=== PATIENT | female | born 1960 ===

== ENCOUNTER 2024-05-15 08:49 | Emergency (ER) | payer MEDICARE, SELFPAY ==
--- NOTE | ~2024-05-15 | XR_ITS ---
EXAMINATION: XR CHEST CLINICAL INFORMATION: productive cough COMPARISON: None available. TECHNIQUE: PA and lateral views of the chest were obtained. FINDINGS: The lungs are adequately expanded. Mild asymmetric elevation right hemidiaphragm. No focal consolidation, pleural effusion, pulmonary edema or pneumothorax. The cardiomediastinal silhouette is within normal limits for technique. No acute osseous abnormality. XR/XR chest 2V IMPRESSION: No acute pulmonary disease. Electronically signed by: Suellen Gagnon DO 05/15/2024 01:18 PM ZORAN
[2024-05-15 08:59] VITALS: BP 142/63; PULSE 93; RESP 24; TEMP 37; O2SAT 95; BMI 28.0
--- NOTE | 2024-05-15 09:24 | ED_ITS ---
HPI - General Adult General Chief complaint: Dyspnea Stated complaint: asthma Time Seen by Provider: 05/15/24 09:16 Source: patient and complaint inspector Mode of arrival: ambulatory Limitations: language barrier History of Present Illness ED Provider: Kassandra CARUSO narrative: Patient is a 64-year-old female with history of asthma presenting to the emergency department with complaint of cough and shortness of breath since Wednesday. Complains of generalized body aches, subjective fevers, wheezing. Reports cough is productive of dark yellow/green sputum. Denies any known sick contacts or other sick family members at home. Has been using her inhaler and breathing treatments at home with little relief but also ran out of albuterol for her nebulizer. Reports small amount of diarrhea yesterday but none today, has been able to tolerate PO food and fluids today. Denies nausea, vomiting, or abdominal pain. MD complaint: cough, shortness of breath Onset (ago): day(s) Treatments prior to arrival: other Related Data Previous Rx's ?Medication ?Instructions ?Recorded albuterol sulfate 2.5 mg/0.5 mL 5 mg inhalation QID PRN shortness 05/15/24 solution for nebulization of breath or wheezing #30 ea azithromycin 250 mg tablet See Rx Instructions PO .COMPLEX #6 05/15/24 tabs prednisone 20 mg tablet 40 mg (2 x 20 mg) PO DAILY #10 tabs 05/15/24 Allergies Allergy/AdvReac Type Severity Reaction Status Date / Time Penicillins Allergy Unknown Verified 05/15/24 09:03 Review of Systems 2 Review of Systems: As per HPI. Yes all other systems are reviewed and are negative Constitutional: Constitutional: Reports as per HPI [facility] Social History Social History Advance Directives: No Advance Directives Information Provided: Yes Do you have a plan to hurt others: No Plan Physical Exam ED Vital Signs: Vital Signs - 24 hr 05/15/24 08:59 05/15/24 10:23 Temperature 98.6 F Pulse Rate 93 76 Respiratory Rate 24 H 22 H Blood Pressure 142/63 H Pulse Oximetry 95 Oxygen Delivery Method Room Air BMI result Body Mass Index 28.0 Vital signs have been reviewed and appear to be correct. Blood pressure normal. Heart rate normal. Respiratory rate slightly tachypneic. Temperature normal. Oxygen saturation normal. Const General: cooperative, healthy appearing and no acute distress Orientation/consciousness: oriented to person, oriented to place, oriented to time and patient oriented x3 Limitations: no limitations HENMT Head: Yes normocephalic and Yes atraumatic Ears: external ears normal General nose exam: Normal external nose present Face and sinus: Yes face symmetric Mouth: oropharynx normal and moist mucous membranes Throat: Yes uvula midline Eyes Pupils: Equal, round and reactive pupils present Neck Neck: Yes normal visual inspection and Yes supple Resp Effort & Inspection: normal respiratory effort and not able to speak in complete sentences Auscultation: wheezes expiratory wheezes, inspiratory wheezes and throughout Cardio Rate: regular rate Rhythm: regular rhythm Heart sounds: S1 normal heart sound present and S2 normal heart sound present GI Palpation (GI): Soft to palpation and nontender Auscultation: normoactive bowel sounds General: Yes no CVA tenderness Back/Spine/Pelvis Back: no CVA tenderness Skin General skin exam: elasticity normal and turgor normal Neuro General: oriented to person, oriented to place, oriented to time, patient oriented x3, moves all extremities, no focal motor deficits and CN's II-XI intact bilaterally Cranial nerves: Yes Equal, round and reactive pupils present Cognition (Neuro): normal cognition Extrem General: Yes full ROM, Yes no pedal edema and Yes no calf tenderness Psych Mental Status: mental status grossly normal Affect: normal affect Thought process: Normal thought process present Medications Administered Discontinued Medications Generic Name Dose Route Start Last Admin Trade Name Freq PRN Reason Stop Dose Admin Albuterol Sulfate 5 mg/ 0 mg 05/15/24 10:18 05/15/24 10:22 Albuterol/Ipratropium 3 ml INHALE 05/15/24 10:19 1 each ONCE ONE Administration Magnesium Sulfate 2 gm in 50 mls @ 25 mls/hr 05/15/24 10:09 05/15/24 11:16 Magnesium Sulfate/H2o IV 05/15/24 12:08 Infused ONCE ONE Infusion Methylprednisolone Sodium Succinate 60 mg 05/15/24 10:09 05/15/24 11:22 Methylprednisolone Sod Succ 125 Mg/2 Ml Vial IVPUSH 05/15/24 10:10 60 mg ONCE ONE Administration Potassium Chloride 40 meq 05/15/24 10:25 05/15/24 11:07 Potassium Chloride Packet 20 Meq Packet PO 05/15/24 10:26 40 meq ONCE ONE Administration Medical Decision Making Medical Decision Making MDM Narrative: Patient is a 64-year-old female with history of asthma presenting to the emergency department with complaint of cough and shortness of breath since Wednesday. On exam patient is awake, A+Ox3, slightly tachypneic, VS otherwise WNL, afebrile, normal neurological exam without focal deficits, physical exam findings as above. Only able to speak 2-3 words at a time. Given reported symptoms and physical exam findings, initial differential includes asthma exacerbation, viral illness, bronchitis, pneumonia. Labs notable for mild hypokalemia. Viral serology negative. X-ray chest notable for no evidence of pneumonia. My interpretation is in agreement with the radiologist's interpretation. Upon reassessment, wheezing significantly decreased and patient reports improvement in symptoms after breathing treatment and IV medications. Will treat patient for bronchitis with azithromycin, prednisone, albuterol. Follow up with PCP. Return precautions discussed. Patient verbalized understanding of and agreement with plan. In-person product delivery specialist was utilized for all interactions, assessments, and discussions. Differential Diagnosis Differential Diagnoses: The differential diagnosis associated with the presentation includes as per [facility] Admission/Observation Consideration of admission/observation: Escalation of care including admission/observation considered Patient would have been admitted to the hospital had their work up had any findings where hospital admission was appropriate and their clinical presentation warranted hospital admission. Lab Data [facility] Lab Attestation statement: I reviewed the patient's lab results. as per [facility] 05/15/24 09:45 05/15/24 09:45 Labs: Lab Results 05/15/24 Range/Units 09:45 WBC 4.6 L (4.8-10.8) X10*3/uL RBC 4.24 (4.20-5.50) X10*6/uL Hgb 11.8 L (12.0-16.0) g/dl Hct 36.8 L (37.0-47.0) % MCV 86.8 (80.0-98.0) fL MCH 27.8 (27.0-33.0) pg MCHC 32.1 (31.0-35.0) g/dl RDW 13.2 (11.0-16.0) % Plt Count 248 (160-400) X10*3/uL MPV 10.4 (9.4-12.3) fL Immature Gran % (Auto) 0.2 (0.0-0.4) % Neut % (Auto) 63.6 (45-73) % Lymph % (Auto) 26.7 (20-40) % Roosevelt % (Auto) 5.8 (2-11) % Eos % (Auto) 2.8 (0-4) % Baso % (Auto) 0.9 (0-2) % Lymph # (Auto) 1.2 (1.2-4.9) X10*3/uL Roosevelt # (Auto) 0.3 (0.1-1.2) X10*3/uL Eos # (Auto) 0.1 (0.0-0.4) X10*3/uL Baso # (Auto) 0.0 (0.0-0.2) X10*3/uL Abs Immat Gran (auto) 0.01 (0.00-0.03) X10*3/uL Absolute Neuts (auto) 3.0 (2.0-8.3) x10*3/uL Absolute Nucleated RBC 0.000 (0.0-0.012) X10*3/uL Nucleated RBC % (auto) 0.0 (0.0-0.2) /100WBC Sodium 138 (135-145) mmol/L Potassium 3.2 L (3.3-5.1) mmol/L Chloride 102 (96-108) mmol/L Carbon Dioxide 27 (22-29) mmol/L Anion Gap 12 (12-20) BUN 14 (9-16) mg/dL Creatinine 0.88 (0.5-1.4) mg/dL Estim Creat Clear Calc 64.2 Estimated GFR > 60 Random Glucose 115 (60-115) mg/dL Calcium 8.8 (8.4-10.2) mg/dL Magnesium 1.8 (1.6-2.6) mg/dL Total Bilirubin 0.3 (0.0-1.0) mg/dL AST 29 (5-31) U/L ALT 29 (0-31) U/L Alkaline Phosphatase 73 (39-117) U/L Total Protein 7.1 (6.5-8.0) g/dL Albumin 4.1 (3.5-5.0) g/dL Influenza Type A (PCR) NEGATIVE (Negative) Influenza Type B (PCR) NEGATIVE (Negative) RSV RNA Qual (PCR) NEGATIVE (Negative) SARS-CoV-2 RNA (RT-PCR) NEGATIVE (Negative) Independent Interpretation I performed an independent interpretation of an: Plain X-Ray Interpretation: No evidence of pneumonia on chest xray Radiology Impression Discussion of test interpretation with radiology: I have reviewed the radiologist's reading. Radiologist Impression: XR/XR chest 2V IMPRESSION: No acute pulmonary disease. External Record Review External record reviewed: Inpatient record, Office record and Outpatient record Prescription Management I considered prescription management with: Antibiotic and Other Critical Care Time Critical Care Time Critical Care Time: Yes Total Critical Care Time: 35 Attestation: I have personally provided critical care time exclusive of time spent on separately billable procedures. Time includes review of lab data, radiology results, discussion with consultants, and monitoring for potential decompensation. Intervention performed as documented. Discharge Plan Discharge Clinical Impression: Asthma with exacerbation, Bronchitis Patient Disposition: Home, Self-Care Instructions: Asthma (DC), Acute Bronchitis (ED) Additional Instructions: You were evaluated in the emergency department today for cough and shortness of breath. Your chest x-ray did not show evidence of pneumonia. Your flu, COVID, and RSV swabs were negative. You are being treated with an antibiotic for bronchitis, complete the full course as prescribed. You are also being prescribed a course of steroids to decrease inflammation. You are being prescribed additional albuterol for your nebulizer machine. Follow-up with your primary care provider. Return to the emergency department with worsening shortness of breath, fevers, chest pain or any other new or concerning symptoms. Prescriptions: New azithromycin 250 mg tablet See Rx Instructions .ROUTE .COMPLEX Qty: 6 0RF Rx Instructions: For 250 mg dose pack: take 500 mg today (day 1), then 250 mg for 4 days (days 2-5) prednisone 20 mg tablet 40 mg PO DAILY Qty: 10 0RF albuterol sulfate 2.5 mg/0.5 mL solution for nebulization 5 mg inhalation QID PRN (Reason: shortness of breath or wheezing) Qty: 30 0RF Print Language: Cameroonian
[2024-05-15 09:49] LABS: MANUAL DIFF FLAG NO
[2024-05-15 09:51] LABS: Basophils Percent Auto 0.9 % (0-2); Eosinophils Absolute Auto 0.1 X10*3/uL (0.0-0.4); Eosinophils Percent Auto 2.8 % (0-4); Hematocrit 36.8 % (37.0-47.0); Hemoglobin 11.8 g/dl (12.0-16.0); Imm Gran Abs Auto 0.01 X10*3/uL (0.00-0.03); Imm Gran Pct Auto 0.2 % (0.0-0.4); Lymphocytes Absolute Auto 1.2 X10*3/uL (1.2-4.9); Lymphocytes Percent Auto 26.7 % (20-40); Mean Corpuscular HGB Conc 32.1 g/dl (31.0-35.0); Mean Corpuscular Hemoglobin 27.8 pg (27.0-33.0); Mean Corpuscular Volume 86.8 fL (80.0-98.0); Mean Platelet Volume 10.4 fL (9.4-12.3); Monocytes Absolute Auto 0.3 X10*3/uL (0.1-1.2); Monocytes Percent Auto 5.8 % (2-11); Neutrophils Percent Auto 63.6 % (45-73); Platelet Count 248 X10*3/uL (160-400); Red Blood Count 4.24 X10*6/uL (4.20-5.50); Red Cell Distribution Width 13.2 % (11.0-16.0); White Blood Count 4.6 X10*3/uL (4.8-10.8)
[2024-05-15 10:04] LABS: Alanine Aminotransferase 29 U/L (0-31); Albumin Level 4.1 g/dL (3.5-5.0); Alkaline Phosphatase 73 U/L (39-117); Anion Gap 12 (12-20); Aspartate Amino Transferase 29 U/L (5-31); Bilirubin Total 0.3 mg/dL (0.0-1.0); Blood Urea Nitrogen 14 mg/dL (9-16); Calcium 8.8 mg/dL (8.4-10.2); Carbon Dioxide 27 mmol/L (22-29); Chloride 102 mmol/L (96-108); Creatinine Clr Calc Pharmacy 64.2; Estimated Glomerular Filt Rate > 60; Glucose Random 115 mg/dL (60-115); Magnesium 1.8 mg/dL (1.6-2.6); Potassium 3.2 mmol/L (3.3-5.1); Sodium 138 mmol/L (135-145); Total Protein 7.1 g/dL (6.5-8.0)
[2024-05-15] MEDS: Albuterol Sulfate 5 MG, Albuterol/Iprat 2.5/0.5MG 3 ML 3 ML INHALE (10:22)
[2024-05-15 10:23] VITALS: PULSE 76; RESP 22; O2SAT 95
[2024-05-15 10:27] LABS: Influenza A PCR NEGATIVE (Negative); Influenza B PCR NEGATIVE (Negative); Resp Syncy Virus RNA Qual PCR NEGATIVE (Negative); SARS COV2 PCR INHOUSE NEGATIVE (Negative)
[2024-05-15] MEDS: Magnesium Sulfate/H2O 2 GM/50 ML PIGGYBACK IV (10:58)
[2024-05-15] MEDS: Potassium Chloride Packet 20 MEQ PACKET 40 MEQ PO (11:07)
[2024-05-15] MEDS: methylPREDNISolone Sod Succ 125 MG/2 ML VIAL 60 MG IVPUSH (11:22)
[2024-05-15 14:10] VITALS: BP 126/65; PULSE 85; RESP 18; TEMP 36.9; O2SAT 95
== END 2024-05-15 14:14 | disposition home or self-care (01) ==
PROVIDERS: Emergency Provider Emergency Medicine
DX: J40 Bronchitis, not specified as acute or chronic (principal); R06.00 Dyspnea, unspecified; R05.9 Cough, unspecified; M79.10 Myalgia, unspecified site; Z03.818 Encounter for observation for suspected exposure to other biological agents ruled out; Z79.899 Other long term (current) drug therapy
CPT/HCPCS: 0241U; 71046; 80053; 83735; 85025; 94640; 96365; 96375; 99284; J2919; J3475

== ENCOUNTER 2024-06-16 08:49 | Outpatient (REF) | payer MEDICARE, SELFPAY ==
[2024-06-16 14:07] LABS: Appearance Urine Clear; Color Urine Yellow; Glucose Urine UA Negative (Negative); Leukocyte Esterase Urine Small (1+) (Negative); Nitrite Urine Negative (Negative); PH 6.5 (5.0-9.0); Specific Gravity - Urine 1.015 (1.005-1.025); UMIC TRIGGER UACC YES; Urine Blood Negative (Negative); Urine Ketones Negative (Negative); Urine Protein Negative (Neg-Trace)
[2024-06-16 14:18] LABS: MANUAL DIFF FLAG NO
[2024-06-16 14:21] LABS: Bacteria Urine None Seen (None Seen); Hyaline Casts Urine 0-2 /LPF (0-2); RBC Urine 0-2 /HPF (0-2); Squamous Epithelial Cell Urine 0-2 /HPF (0-2); UACC Culture Trigger YES; WBC Urine 0-5 /HPF (0-5)
[2024-06-16 14:22] LABS: Basophils Absolute Auto 0.1 X10*3/uL (0.0-0.2); Basophils Percent Auto 1.3 % (0-2); Eosinophils Absolute Auto 0.1 X10*3/uL (0.0-0.4); Eosinophils Percent Auto 2.3 % (0-4); Hematocrit 37.7 % (37.0-47.0); Hemoglobin 11.8 g/dl (12.0-16.0); Imm Gran Abs Auto 0.01 X10*3/uL (0.00-0.03); Imm Gran Pct Auto 0.2 % (0.0-0.4); Lymphocytes Absolute Auto 2.1 X10*3/uL (1.2-4.9); Lymphocytes Percent Auto 33.9 % (20-40); Mean Corpuscular HGB Conc 31.3 g/dl (31.0-35.0); Mean Corpuscular Hemoglobin 27.7 pg (27.0-33.0); Mean Corpuscular Volume 88.5 fL (80.0-98.0); Mean Platelet Volume 11.3 fL (9.4-12.3); Monocytes Absolute Auto 0.4 X10*3/uL (0.1-1.2); Monocytes Percent Auto 5.7 % (2-11); Neutrophils Absolute Auto 3.5 x10*3/uL (2.0-8.3); Neutrophils Percent Auto 56.6 % (45-73); Platelet Count 343 X10*3/uL (160-400); Red Blood Count 4.26 X10*6/uL (4.20-5.50); Red Cell Distribution Width 13.5 % (11.0-16.0); White Blood Count 6.1 X10*3/uL (4.8-10.8)
[2024-06-16 14:33] LABS: Estimated Average Glucose 120 mg/dL; Hemoglobin A1C 119.7845 umol/L; Hemoglobin A1c % 5.8 % (<6.0); Total Hemoglobin (HGBA1C) 3043.6359 umol/L
[2024-06-16 14:44] LABS: Anion Gap 12 (12-20); Aspartate Amino Transferase 32 U/L (5-31); Bilirubin Total 0.3 mg/dL (0.0-1.0); Blood Urea Nitrogen 19 mg/dL (9-16); Calcium 9.4 mg/dL (8.4-10.2); Carbon Dioxide 28 mmol/L (22-29); Chloride 105 mmol/L (96-108); Cholesterol 158 mg/dL (<200); Estimated Glomerular Filt Rate > 60; Glucose Random 82 mg/dL (60-115); HDL Cholesterol 42 mg/dL (>40); LDL Cholesterol Calculated 84 mg/dL (<100); Potassium 3.7 mmol/L (3.3-5.1); Sodium 141 mmol/L (135-145); Total Protein 6.8 g/dL (6.5-8.0); Triglycerides 161 mg/dL (<150); Uric Acid 7.9 mg/dL (2.4-5.7)
[2024-06-16 15:00] LABS: Alanine Aminotransferase 30 U/L (0-31); Alkaline Phosphatase 76 U/L (39-117)
[2024-06-16 15:05] LABS: TSH reflex Free T4 2.49 uIU/mL (0.32-4.0)
[2024-06-17 09:00] LABS: HIV AB/AG Nonreactive (Nonreactive); HIV Num 1 0.08 S/CO (0.00-0.99); ~HepC Num1 0.17 S/CO (0.00-0.79); ~Hepatitis C Antibody Nonreactive (Nonreactive)
== END 2024-06-16 08:50 | disposition home or self-care (01) ==
LOC: HO.CHCLDS 08:49
PROVIDERS: Visit Provider Internal Medicine
DX: I10 Essential (primary) hypertension (principal); T56.0X1A Toxic effect of lead and its compounds, accidental (unintentional), initial encounter; M10.1 Lead-induced gout; R30.0 Dysuria; Z13.1 Encounter for screening for diabetes mellitus
CPT/HCPCS: 36415; 80053; 80061; 81001; 83036; 84443; 84550; 85025; 86803; 87086; 87389

== ENCOUNTER 2024-07-31 09:00 | Outpatient (REF) | payer MEDICARE, SELFPAY ==
--- OUTSIDE RECORDS SUMMARY | 2024-07-31 13:20 | XMS_ITS | Encounter Summary ---
Author Organization [employer] Address [address] [facility] [address] [place] [address] Care Team Providers Care Dermatologist And Dermatopathologist Name Role Phone Arnulfo Maria MD Primary Care Prov ider Encounter Details Date Type Department Care Team (Latest Contact Info) Description 07/26/2024 Travel Social History Tobacco Use Types Packs/Day Years Used Date Smoking Tobacco: Former Cigarettes 0.3 21 S tarted: 1982 Smokeless Tobacco: Never Alcohol Use Standard Drinks/Week Comments Never 0 (1 standard drink = 0.6 oz pur e alcohol) Depression Answer Date Recorded Patient Health Questionnaire-9 Score 4 06/15/2024 Patient Health Questionnaire-9 Score 4 06/15/2024 Last PHQ-9: Questionnaire Data Not on file 1 08/16/2023 Housing Stability Answer Date Recorded What is your housing situation today? I have manuel sanchez 06/05/[address] you li ve. Do you have problems with any of the following? None of the above 06/05/2024 Food Insecurity Answer Date Recorded Within the past 12 months, y ou worried that your food would run out before you got money to buy more: Never True 06/05/2024 Within the past 12 months,th e food you bought just didn't last and you didn't have enough money to get more: Never True 08/2023 Transportation Answer Date Recorded In the past 12 months, has l ack of transportation kept you from medical appts, meetings, work or from getting things needed for daily living? No 06/05/2024 Utilities Answer Date Recorded In the past 12 months, has t he electric, gas, oil or water company threatened to shut off services in your home? No 06/05/2024 Depression Answer Date Recorded Patient Health Questionnaire-2 Score 2 06/15/2024 Internet Access Answer Date Recorded Internet Access Q1 Yes 06/05/2024 Internet Access Q2 Not on file 06/05/2024 Comments Unknown Sex and Gender Information Value Date Recorded Sex Assigned at Female 05/17/2024 2:32 PM EST Legal Sex Female 10:58 AM EDT Gender Identity Female 05/17/2024 2:32 PM EST Sexual Orientation Straight 05/17/2024 2: 32 PM EST documented as of this encounter Plan of Treatment Not on file documented as of this encounter Visit Diagnoses Not on filedocumented in this encounter Additional Health Concerns Assessment Noted Time PHQ-9 Depression Total Score: 4 06/15/20 24 1:33 PM EST documented as of this encounter Care Teams Dermatologist And Dermatopathologist Relationship Specialty Start Date End Date Arnulfo Maria MD [address] [place] [phone] PCP - General Internal Medicine 06/15/24 documented as of this encounter
--- OUTSIDE RECORDS SUMMARY | 2024-07-31 13:20 | XMS_ITS | Encounter Summary ---
Author Organization [employer] Address [address] [facility] 7t [place] [address] Care Team Providers Care Packing Attendant Name Role Phone Arnulfo Maria MD Primary Care Prov ider Reason for Visit * Reason Onset Date Comments chart prep 07/25/2024 Encounter Details Date Type Department Care Team ([facility] st Contact Info) Description 07/25/2024 Telephone [facility] MED & PEDS [address] [place] [address] Arnulfo Maria MD [address] [place] [address] chart prep Social History Tobacco Use Types Packs/Day Years Used Date Smoking Tobacco: Former Cigarettes 0.3 21 S tarted: 1983 Smokeless Tobacco: Never Alcohol Use Standard Drinks/Week [...] PM EST documented as of this encounter Miscellaneous Notes * Telephone Encounter - Cristina Corona [place] - 07/25/2024 3:33 PM EST Chart Prep Labs: done Images: not done Vaccines due: yes Referrals: pending appt Screenings: colonoscopy Overdue care gaps: Sbirt documented in this encounter Plan of Treatment Not on file documented as of this encounter Visit Diagnoses Not on filedocumented in this encounter Additional Health Concerns Assessment Noted Time PHQ-9 Depression Total Score: 4 06/15/20 24 1:33 PM EST documented as of this encounter Care Teams Packing Attendant Relationship Specialty Start Date End Date Arnulfo Maria MD [address] [place] [phone] PCP - General Internal Medicine 06/15/24 documented as of this encounter
--- OUTSIDE RECORDS SUMMARY | 2024-07-31 13:20 | XMS_ITS | Encounter Summary ---
Author Organization [employer] Address [address] [facility] 7t [place] [address] Care Team Providers Care Electric Meter Tester Shop Name Role Phone Arnulfo Maria MD Primary Care Prov ider Reason for Visit * Reason Onset Date Comments Pre-op Exam 07/26/2024 Encounter Details Date Type Department Care Team ([facility] st Contact Info) Description 07/26/2024 Telephone [facility] MEDICINE [address] [place] [address] Arnulfo Maria MD [address] [place], [place] [phone] Pre-op Exam Social History Tobacco Use Types Packs/Day Years [...] encounter Miscellaneous Notes * Telephone Encounter - Andres Peña - 07/26/2024 4:16 PM EST Date of Surgery: 08/15/2024 Surgical procedure being done: Cataract Type of anesthesia: MAC Lab needed: No EKG: No Surgeon's name: Bryce Aguilar Facility name: [facility] Surgeon's office number: [phone] Ext [phone] Surgeon's office fax number: [phone] Contact name (person you spoke with): Ernestina Last office note from surgeon requested: No Send Message to Kinjal Jose and Eleazar Clay documented in this encounter Plan of Treatment Not on file documented as of this encounter Visit Diagnoses Not on filedocumented in this encounter Additional Health Concerns Assessment Noted Time PHQ-9 Depression Total Score: 4 06/15/20 24 1:33 PM EST documented as of this encounter Care Teams Electric Meter Tester Shop Relationship Specialty Start Date End Date Arnulfo Maria MD [address] [place] [id number] PCP - General Internal Medicine 06/15/24 documented as of this encounter
--- OUTSIDE RECORDS SUMMARY | 2024-07-31 13:20 | XMS_ITS | Encounter Summary ---
Author Organization [employer] Address [address] [facility] [address] [place] [address] Care Team Providers Care Deburring Machine Operator Name Role Phone Arnulfo Maria MD Primary Care Prov ider Reason for Visit * Reason Onset Date Comments new patient visit 05/08/2024 Encounter Details Date Type Department Care Team ([facility] st Contact Info) Description 05/08/2024 Telephone [facility] MEDICINE [address] [place] [address] Arnulfo Maria MD [address] [place], [place] [phone] new patient visit Social History Tobacco Use Types Packs/Day Years Used Date Smoking Tobacco: Never Assessed Comments Unknown Sex and Gender Information Value Date Recorded Sex Assigned at Female 05/17/2024 2:32 PM EST Legal Sex Female 10:58 AM EDT Gender Identity Female 05/17/2024 2:32 PM EST Sexual Orientation Straight 05/17/2024 2: 32 PM EST documented as of this encounter Miscellaneous Notes * Telephone Encounter - Eleazar Clay - 05/08/2024 9:12 AM EST TC placed to patient for scheduling of new patient visit. Agreed to 05/11/[address] Key Medical Conditions: Asthma Pt running out of medication/ has a list that will let provider know about / Apptmnt reminder and release form sent via mail . documented in this encounter Plan of Treatment Not on file documented as of this encounter Visit Diagnoses Not on filedocumented in this encounter Care Teams Deburring Machine Operator Relationship Specialty Start Date End Date Arnulfo Maria MD [address] [place] [id number] PCP - General Internal Medicine 06/15/24 documented as of this encounter
--- OUTSIDE RECORDS SUMMARY | 2024-07-31 13:20 | XMS_ITS | Encounter Summary ---
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 female who presents for No chief complaint on file.. Hypertension This is a chronic problem. The problem is controlled. Pertinent negatives include no chest pain, headaches, palpitations, peripheral edema or shortness of breath. Review of Systems Respiratory: Negative for shortness of breath. Cardiovascular: Negative for chest pain and palpitations. Neurological: Negative for headaches. Objective Physical Exam Neurological: General: No focal deficit present. Mental Status: She is oriented to person, place, and time. Psychiatric: Mood and Affect: Mood normal. Behavior: Behavior normal. Assessment/Plan Problem List Items Addressed This Visit 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 neuro comp ([facility]) - Primary Primary hypertension Uncontrolled, will add amlodipine, continue low sodium diet and exercise as tolerated, follow up in1 month Other Visit Diagnoses Dietary counseling Exercise counseling documented in this encounter Miscellaneous Notes * Assessment & Plan Note - Arnulfo Bates MD - 07/26/2024 11:55 AM ESTAssociated Problem(s): Primary hypertension Uncontrolled, will add amlodipine, continue low sodium diet and exercise as tolerated, follow up in1 month documented in this encounter Plan of Treatment Not on file documented as of this encounter Visit Diagnoses Diagnosis 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 neuro comp ([facility])- Primary Dietary counseling Dietary surveillance and counseling Exercise counseling Primary hypertension Unspecified essential hypertension documented in this encounter Additional Health Concerns Assessment Noted Time PHQ-9 Depression Total Score: 4 06/15/20 24 1:33 PM EST documented as of this encounter Care Teams Roofing Applicator Relationship Specialty Start Date End Date Arnulfo Maria MD [address] [place] [phone] PCP - General Internal Medicine 06/15/24 documented as of this encounter
--- OUTSIDE RECORDS SUMMARY | 2024-07-31 13:20 | XMS_ITS | Encounter Summary ---
Author Organization [email or web address] Address [address] [facility] 7t [place] [address] Care Team Providers Care Feeder/Folder Name Role Phone Arnulfo Maria MD Primary Care Prov ider Reason for Visit * Reason Comments Med Refill Encounter Details Date Type Department Care Team ([facility] Contact Info) Description 07/10/2024 Refill [facility] CHC MED & PEDS [address] [place] [address] Arnulfo Maria MD [address] [place], [place] [phone] Social History Tobacco Use Types Packs/Day Years [...] documented as of this encounter Care Teams Feeder/Folder Relationship Specialty Start Date End Date Arnulfo Maria MD [address] [place] [phone] PCP - General Internal Medicine 06/15/24 documented as of this encounter
--- OUTSIDE RECORDS SUMMARY | 2024-07-31 13:20 | XMS_ITS | Encounter Summary ---
Author Organization [employer] Address [address] [facility] 7t [place] [address] Care Team Providers Care Career Development Engineer Name Role Phone Arnulfo Maria MD Primary Care Prov ider Reason for Visit * Reason Comments Med Refill Encounter Details Date Type Department Care Team ([facility] Contact Info) Description 06/16/2024 Refill [facility] CHC MED & PEDS [address] [place] [address] Arnulfo Maria MD [address] [place], [place] [phone] Social History Tobacco Use Types Packs/Day Years [...] documented as of this encounter Care Teams Career Development Engineer Relationship Specialty Start Date End Date Arnulfo Maria MD [address] [place] [id number] PCP - General Internal Medicine 06/15/24 documented as of this encounter
--- OUTSIDE RECORDS SUMMARY | 2024-07-31 13:20 | XMS_ITS | Clinical Summary ---
Author Organization [employer] Address [address] [facility] 7[address] [place] [address] Care Team Providers Care Security Nurse Name Role Phone Arnulfo Maria MD Primary Care Prov ider Allergies Active Allergy Reactions Criticality Noted Date Comments Penicillin G Rash Low 06/15/2024 Medications montelukast (Singulair) 10 MG tablet Take 1 tablet (10 mg) by mouth Once per day. 30 tablet 2 06/15/20 24 025 Active gabapentin (Neurontin) 300 MG capsule Take 1 capsule (300 mg) by mouth 3 times daily. 90 capsule 2 06/15/20 24 025 Active losartan-hydro CHLOROthiazide (Hyzaar) 100-25 MG tablet Take 1 tablet by mouth Once per day. 90 tablet 3 06/16/20 24 025 Active QUEtiapine (SEROquel) 50 MG tablet TAKE 1 TABLET(50 MG) BY MOUTH AT BEDTIME 30 tablet 07/10/19 25 Active omeprazole (PriLOSEC) [address] capsule Take 1 capsule (20 mg) by mouth before breakfast. Do not crush or chew. 90 capsule 3 07/12/19 25 Active amLODIPine (Norvasc) 5 MG tablet Take 1 tablet (5 mg) by mouth Once per day. 30 tablet 11 07/26/19 25 026 Active atorvastatin (Lipitor) 40 MG tablet Take 1 tablet (40 mg) by mouth Once per day. 30 tablet 11 07/26/19 25 026 Active QUEtiapine (SEROquel) 50 MG tablet Take 1 tablet (50 mg) by mouth at bedtime. 30 tablet 06/15/20 24 025 Discontinued Omeprazole 20 MG tablet delayed-releas e Take 1 tablet (20 mg) by mouth Once per day. 90 tablet 3 06/15/20 24 025 Discontinued(In effective) omeprazole (PriLOSEC) [address] capsule Take 20 mg by mouth before breakfast. Do not crush or chew. 025 Discontinued(Re order (will not trigger notification to Pharmacy)) Active Problems Problem Noted Date Diagnosed Date 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 n euro comp 07/26/2024 Primary hypertension 07/26/2024 Assessment & Plan (07/26/2024 11:55 AM EST): Uncontrolled, will add amlodipine, continue low sodium diet and exercise as tolerated, follow up in 1 month Encounter for medical examination to establish c are 06/15/2024 Assessment & Plan (06/15/2024 1:26 PM EST): ER visit on the past year: May on [facility] due to flu and asthma exacerbation Hospitalization: 10 yrs ago due to asthma exacerbation Pmhx: asthma, htn, choleterol, OA Pshx: PHI/BSO 2015, appendectomy 1977, All: PNC Meds: albuterol inhaler, meloxicam 15mg, losartan 25mg, quetiapine 50mg, omeprazole 40mg, montelukast 10mg A0 Menarche 14yrs LMP 2016 Encounter for screening mamm ogram for malignant neoplasm of breast 06/15/2024 Assessment & Plan (06/15/2024 1:32 PM EST): Done on [place] on July 2023,, will place new order Screening for colon cancer 06/15/2024 Assessment & Plan (06/15/2024 1:32 PM EST): Will refer for screening colon cancer Encounters Date Type Department Care Team Description 07/26/2024 10:15 AM EST Telemedicine [facility] MED & PEDS [address] [place] [address] Arnulfo Maria MD 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 neuro comp (CMS/HCC) (Primary Dx); Dietary counseling; Exercise counseling; Primary hypertension 07/26/2024 Telephone [facility] MEDICINE [address] [place] [address] Arnulfo Maria MD Pre-op Exam 07/26/2024 Travel 07/25/2024 Telephone [facility] MED & PEDS [address] [place] [address] Arnulfo Maria MD chart prep 07/13/2024 Telephone [facility] MEDICINE [address] [place] [address] Arnulfo Maria MD 07/10/2024 Refill [facility] MED & PEDS [address] [place] [address] Arnulfo Maria MD 07/10/2024 Refill [facility] MED & PEDS [address] [place] [address] Arnulfo Maria MD 06/19/2024 Telephone [facility] MED & PEDS [address] [place] [address] Arnulfo Maria MD 06/16/2024 Refill [facility] MED & PEDS [address] [place] [address] Arnulfo Maria MD 06/15/2024 1:00 PM EST Office Visit [facility] MED & PEDS [address] [place] [address] Arnulfo Maria MD Encounter for medical examination to establish care (Primary Dx); Primary hypertension; Encounter for screening mammogram for malignant neoplasm of breast; Screening for colon cancer; Lead-induced gout involving toe, unspecified chronicity, unspecified laterality, initial encounter 06/15/2024 Telephone [facility] [address] [place] [address] Arnulfo Maria MD 06/15/2024 Orders Only [facility] MED & PEDS [address] [place] [address] Arnulfo Maria MD Dysuria (Primary Dx) 06/15/2024 Travel 06/05/2024 Patient Outreach [facility]EDS [address] [place] [address] Arnulfo Maria MD Pre-visit Planning (SDOH negative, Tobacco screening negative. ) 05/17/2024 Travel 05/16/2024 Telephone [facility] MED & PEDS [address] [place] [address] Giovanna Watkins MA Chart Prep 05/12/2024 Telephone [facility] MED & PEDS [address] [place] [address] Cristina Corona MA 05/11/2024 Telephone [facility] MED & PEDS [address] [place] [address] Roseann Ramirez, RN Provider Out 05/11/24 05/08/2024 Telephone [facility] MED & PEDS [address] [place] [address] Cristina Corona MA chart prep 05/08/2024 Telephone [facility] MEDICINE [address] [place] [address] Arnulfo Maria MD new patient visit from Last 3 Months Family History Medical History Relation Name Comments Stomach cancer Brother Asthma Father Osteoarthritis Father Asthma Mother Heart disease Mother Osteoarthritis Mother Relation Name Status Comments Brother Father Mother Social History Tobacco Use Types Packs/Day Years Used Date Smoking Tobacco: Former Cigarettes 0.3 21 S tarted: 1983 Smokeless Tobacco: Never Tobacco Cessation:Counseling Given: Not Answered Alcohol Use Standard Drinks/Week Comments Never 0 [...] Orientation Straight 05/17/2024 2: 32 PM EST Last Filed Vital Signs Vital Sign Reading Time Taken Comments Blood Pressure 156/87 07/26/2024 10:24 AM EST Pulse 70 06/15/2024 1:14 PM EST Temperature 36.6 ??C (97.8 ??F) 06/15/2024 1:14 PM ES T Respiratory Rate 16 06/15/2024 1:14 PM EST Oxygen Saturation 98% 06/15/2024 1:14 PM EST Inhaled Oxygen Concentration - - Weight 74.4 kg (164 lb) 06/15/2024 1:14 PM EST Height 160 cm (5' 3 ) 06/15/2024 1:14 PM EST Body Mass Index 29.05 06/15/2024 1:14 PM EST Plan of Treatment Health Maintenance Due Date Last Done Comments CT Colonography 1958 Colonoscopy 1958 Colorectal Cancer Screening 1958 FIT DNA/Cologuard 1958 FIT 1958 FOBT 1958 Sigmoidoscopy 1958 Pneumococcal Vaccine: 65+ Years (1 of 2 - PCV) 02/15/1964 Diabetes: Foot Exam 02/15/1968 Eye Exam 02/15/1968 Alcohol/Substance Use Screening 1970 DTaP/Tdap/Td Vaccines (1 - Tdap) 1977 Diabetes: Urine Protein Screening 1977 Mammogram 1998 Zoster Vaccines (1 of 2) 02/15/2008 COVID-19 Vaccine ( - 2023-2 5 season) 2024 Influenza Vaccine (#1) 2024 Diabetes: Hemoglobin A1C 12/15/2024 06/16/2024 SDOH Screening 06/05/2025 06/05/2024 Depression Screening 06/15/2025 06/15/2024, 06/15/2024 Tobacco Screening 06/15/2025 06/15/2024 Lipid Panel 06/16/2025 06/16/2024 RSV Patients and Patients Aged 60 years or older (1 - 1-dose 75+ series) 2033 Hepatitis C Screening Completed 06/16/2024 HIB Vaccines Aged Out No longer eligi ble based on patient's age to complete this topic HPV Vaccines Aged Out No longer eligi ble based on patient's age to complete this topic Hepatitis A Vaccines Aged Out No long er eligible based on patient's age to complete this topic Hepatitis B Vaccines Aged Out No long er eligible based on patient's age to complete this topic IPV Vaccines Aged Out No longer eligi ble based on patient's age to complete this topic Meningococcal Vaccine Aged Out No rob madalyn eligible based on patient's age to complete this topic RSV under 20 months Aged Out No longe r eligible based on patient's age to complete this topic Rotavirus Vaccines Aged Out No longer eligible based on patient's age to complete this topic Procedures Procedure Name Priority Date/Time Associated Diagnosis Comments URINALYSIS, COMPLETE, WITH REFLEX TO CULTURE Routine 06/16/2024 9:30 AM EST Dysuria URIC ACID Routine 06/16/2024 8:52 AM EST Lead-induced gout involving toe, unspecified chronicity, unspecified laterality, initial encounter HIV 1/2 ANTIGEN/ANTIBODY, FOURTH GENERATION W/RFL Routine 06/16/2024 8:52 AM EST Primary hypertension HEPATITIS C AB W/REFL TO HCV RNA, QN, PCR Routine 06/16/2024 8:52 AM EST Primary hypertension TSH W/REFLEX TO FT4 Routine 06/16/2024 8 :52 AM EST Primary hypertension HEMOGLOBIN A1C Routine 06/16/2024 8:52 AM EST Primary hypertension LIPID PANEL, STANDARD Routine 06/16/2024 8:52 AM EST Primary hypertension COMPREHENSIVE METABOLIC PANEL Routine 06/16/2024 8:52 AM EST Primary hypertension CBC WITH AUTO DIFFERENTIAL Routine 06/16/2024 8:52 AM EST Primary hypertension CULTURE, URINE, ROUTINE Routine 06/16/2024 12:00 AM EST Dysuria from Last 3 Months Results * (ABNORMAL) Urinalysis, Complete, with Reflex to Culture (06/16/2024 9:30 AM EST) Color Urine Yellow [facility] Appearance Urine Clear [facility] PH 6.5 5.0 - 9.0 [facility] Glucose Urine UA Negative Negative mg/dL [facility] Urine Blood Negative Negative [facility] Specific [place] - Urine 1.015 1.005 - 1.025 [facility] Urine Protein Negative Neg-Trace mg/dL [facility] Urine Ketones Negative Negative mg/dL [facility] Nitrite Urine Negative Negative [facility] Leukocyte Esterase Urine Small (1+)(A) Negative [facility] RBC Urine 0-2 0 - 2 /HPF [facility] Urine WBC 0-5 0 - 5 /HPF [facility] Urine Squamous Epithelial Cell 0-2 0 - 2 /HPF [facility] Urine Bacteria None Seen None Seen [facility] Hyaline Casts, Urine 0-2 0 - 2 /LPF [facility] Urine 06/16/2024 9:30 AM EST 06/16/2024 2:01 PM EST Narrative [facility] - 06/16/2024 2:22 PM EST [id number], Clean Catch Arnulfo Bates MD LAB URINE ORDERABL ES Final Result Performing Organization Address City/[facility]/ZIP Co de Phone Number [facility] [address] [place] [phone] * TSH W/Reflex to FT4 (06/16/2024 8:52 AM EST) TSH reflex Free T4 2.49 0.32 - 4.0 uIU/mL [facility] Blood Venous blood specimen / Unknown 06/16/2024 8:52 AM EST 06/16/2024 2:18 PM EST Arnulfo Bates MD LAB BLOOD ORDERABL ES Final Result Performing Organization Address [facility]/ZIP Co de Phone Number [facility] [address] [place] [phone] * (ABNORMAL) CBC auto differential (06/16/2024 8:52 AM EST) White Blood Count 6.1 4.8 - 10.8 X10*3/uL [facility] Red Blood Count 4.26 4.20 - 5.50 X10*6/uL [facility] Hemoglobin 11.8(L) 12.0 - 16.0 g/dl [facility] Hematocrit 37.7 37.0 - 47.0 % [facility] Mean Corpuscular Volume 88.5 80.0 - 98.0 fL [facility] Mean Corpuscular Hemoglobin 27.7 27.0 - 33.0 pg [facility] Mean Corpuscular HGB Conc 31.3 31.0 - 35.0 g/dl [facility] Red Cell Distribution Width 13.5 11.0 - 16.0 % [facility] Platelet Count 343 160 - 400 X10*3/uL [facility] Mean Platelet Volume 11.3 9.4 - 12.3 fL [facility] Neutrophils Percent Auto 56.6 45 - 73 % [facility] Imm Gran Pct Auto 0.2 0.0 - 0.4 % [facility] Lymphocytes Percent Auto 33.9 20 - 40 % [facility] Monocytes Percent Auto 5.7 2 - 11 % [facility] Eosinophils Percent Auto 2.3 0 - 4 % [facility] Basophils Percent Auto 1.3 0 - 2 % [facility] NRBC Pct Auto 0.0 0.0 - 0.2 /100WBC [facility] Neutrophils Absolute Auto 3.5 2.0 - 8.3 x10*3/uL [facility] Imm Gran Abs Auto 0.01 0.00 - 0.03 X10*3/uL [facility] Lymphocytes Absolute Auto 2.1 1.2 - 4.9 X10*3/uL [facility] Monocytes Absolute Auto 0.4 0.1 - 1.2 X10*3/uL [facility] Eosinophils Absolute Auto 0.1 0.0 - 0.4 X10*3/uL [facility] Basophils Absolute Auto 0.1 0.0 - 0.2 X10*3/uL [facility] NRBC Abs Auto 0.000 0.0 - 0.012 X10*3/uL [facility] Blood Venous blood specimen / Unknown 06/16/2024 8:52 AM EST 06/16/2024 2:14 PM EST us Arnulfo Bates MD LAB BLOOD ORDERABL ES Final Result [facility] [address] [place] [phone] * Hepatitis C Antibody with Reflex to HCV, RNA, Quantitative, Real-Time PCR (06/16/2024 8:52 AM EST) Hepatitis C Antibody Nonreactive Nonreactive [facility] Comment:Antibodies to HCV no t detected; does not exclude early acuteHCV infection. Blood Venous blood specimen / Unknown 06/16/2024 8:52 AM EST 06/16/2024 2:18 PM EST Arnulfo Bates MD LAB BLOOD ORDERABL ES Final Result Performing Organization Address [facility] Co de Phone Number [facility] [address] [place] [phone] * HIV-1/2 Antigen and Antibodies, Fourth Generation, with Reflexes (06/16/2024 8:52 AM EST) HIV AB/AG Nonreactive Nonreactive [facility] Comment:HIV-1 p24 Ag and/or HIV-1/HIV-2 Ab not detected.A test result that is nonreactive does not exclude thepossibility of exposure to or infection with HIV-1 and/orHIV-2. Nonreactive results in this assay for individualswith prior exposure to HIV-1 and/or HIV-2 may be due toantigen and antibody levels that are below the limit ofdetection of this assay.The [employer] HIV Ag/Ab Combo assay result andsupplemental assay results should be interpreted inconjunction with the patient's clinical presentation,history and other laboratory results. If the results areinconsistent with clinical evidence, additional testing issuggested to confirm the result. Blood Venous blood specimen / Unknown 06/16/2024 8:52 AM EST 06/16/2024 2:18 PM EST us Arnulfo Bates MD LAB BLOOD ORDERABL ES Final Result Performing Organization Address City/[facility] Co de Phone Number [facility] [address] [place] [phone] * (ABNORMAL) Uric acid (06/16/2024 8:52 AM EST) Uric Acid 7.9(H) 2.4 - 5.7 mg/dL [facility] Blood Venous blood specimen / Unknown 06/16/2024 8:52 AM EST 06/16/2024 2:18 PM EST us Arnulfo Bates MD LAB BLOOD ORDERABL ES Final Result Performing Organization Address [facility] Co de Phone Number [facility] [address] [place] [phone] * Hemoglobin A1c (06/16/2024 8:52 AM EST) Hemoglobin A1c 5.8 <6.0 % [facility] Comment:Hemoglobin A1C Refer ence Range Adults: 4.8 - 6.0 % Non diabetic: < 6.0 % Goal: < 7.0 %Additional Action Suggested: > 8.0 %Note: Hemoglobin A1c results are invalid for patients with abnormal amounts of HbF. Blood transfusions may impact the HbA1c concentration in the patient sample. Estimated Average Glucose 120 mg/dL [facility] Comment:eAG = Estimated ave rage glucose which is %A1C expressed asaverage glucose, using the formula of the F4V-[id number] Glucose study (ADAG), Diabetes Care, Vol.31,#8,Feb. 2007 Blood Venous blood specimen / Unknown 06/16/2024 8:52 AM EST 06/16/2024 2:14 PM EST Arnulfo Bates MD LAB BLOOD ORDERABL ES Final Result Performing Organization Address [facility] Co de Phone Number [facility] [address] [place] [phone] * (ABNORMAL) Lipid Panel, Standard (06/16/2024 8:52 AM EST) Triglycerides 161(H) <150 mg/dL [facility] Comment:Desirable Triglyceri de: less than 150 mg/dLBorderline High Triglyceride 150-199 mg/dLHigh Triglyceride: 200-499 mg/dLVery High Triglyceride: greater than or equal to 5OO mg/dL Cholesterol 158 <200 mg/dL [facility] Comment:Desirable Cholestero l: less than 200 mg/dLBorderline High Cholesterol: 200-239 mg/dLHigh Cholesterol: greater than 239 mg/dL LDL Cholesterol Calculated 84 <100 mg/dL [facility] Comment:Desirable LDL: less than 100 mg/dLNear Optimal/Above Optimal LDL: 110- 129 mg/dLBorderline High LDL: 130-159 mg/dLHigh LDL: 160-189 mg/dLVery High LDL: greater than or equal to 190 mg/dL HDL Cholesterol 42 >40 mg/dL [facility] Comment:Desirable HDL: great er than 40 mg/dL Note: This HDL assay may give artificially low results in patients with liver disease. Blood Venous blood specimen / Unknown 06/16/2024 8:52 AM EST 06/16/2024 2:18 PM EST us Arnulfo Bates MD LAB BLOOD ORDERABL ES Final Result [facility] [address] [place] [phone] [phone] * (ABNORMAL) Comprehensive Metabolic Panel (06/16/2024 8:52 AM EST) Sodium 141 135 - 145 mmol/L [facility] Potassium 3.7 3.3 - 5.1 mmol/L [facility] Chloride 105 96 - 108 mmol/L [facility] Carbon Dioxide 28 22 - 29 mmol/L [facility] Anion Gap 12 12 - 20 [facility] Urea Nitrogen (BUN) 19(H) 9 - 16 mg/dL [facility] Creatinine, Serum 0.91 0.5 - 1.4 mg/dL [facility] Estimated Glomerular Filt Rate >60 [facility] Comment:Chronic Kidney Disea se: Estimated GFR < 60 mL/min/[id number] Kidney Disease: Estimated GFR < 15 mL/min/1.73m2 Glucose 82 60 - 115 mg/dL [facility] Calcium 9.4 8.4 - 10.2 mg/dL [facility] Bilirubin, Total 0.3 0.0 - 1.0 mg/dL [facility] Aspartate Amino Transferase 32(H) 5 - 31 U/L [facility] Alanine Aminotransferase 30 0 - 31 U/L [facility] Total Protein 6.8 6.5 - 8.0 g/dL [facility] Albumin Level 4.0 3.5 - 5.0 g/dL [facility] Alkaline Phosphatase 76 39 - 117 U/L [facility] Blood Venous blood specimen / Unknown 06/16/2024 8:52 AM EST 06/16/2024 2:18 PM EST Arnulfo Bates MD LAB BLOOD ORDERABL ES Final Result Performing Organization Address City/[facility]/ZIP Co de Phone Number [facility] [address] [place] [phone] * Culture, Urine, Routine (06/16/2024 12:00 AM EST) Urine Urine specimen obtained by clean catch procedure / Unknown 06/16/2024 06/16/2024 Comment:UACC Narrative [facility] - 06/18/2024 8:57 AM EST Urine Culture No growth. Specimen Source: Urine clean catch Arnulfo Bates MD LAB MICROBIOLOGY - GENERAL ORDERABLES Final Result Performing Organization Address [facility] Co de Phone Number [facility] [address] [place] [phone] from Last 3 Months Insurance [facility] STANDARD [facility] DUAL COMPLETE Care Teams Security Nurse Relationship Specialty Start Date End Date Arnulfo Maria MD [address] [place] [phone] PCP - General Internal Medicine 06/15/24
--- OUTSIDE RECORDS SUMMARY | 2024-07-31 13:20 | XMS_ITS | Encounter Summary ---
Author Organization [employer] Address [address] [place] [address] Care Team Providers Care Meal Cook Name Role Phone Arnulfo Maria MD Primary Care Prov ider Encounter Details Date Type Department Care Team (Late st Contact Info) Description 07/13/2024 Telephone [facility] MEDICINE [address] [place] [address] Arnulfo Maria MD [address] [place], [place] [phone] Social History Tobacco Use Types Packs/Day Years [...] documented as of this encounter Care Teams Meal Cook Relationship Specialty Start Date End Date Arnulfo Maria MD [address] [place] [phone] PCP - General Internal Medicine 06/15/24 documented as of this encounter
--- OUTSIDE RECORDS SUMMARY | 2024-07-31 13:20 | XMS_ITS | Encounter Summary ---
Author Organization [employer] Address [address] [facility] [address] [place] [address] Care Team Providers Care Conservation Science Teacher Name Role Phone Arnulfo Maria MD Primary Care Prov ider Reason for Visit * Reason Onset Date Comments Medication Question 07/10/2024 Encounter Details Date Type Department Care Team ([facility] st Contact Info) Description 07/10/2024 Refill [facility] [address] [place] [address] Arnulfo Maria MD [address] [place] [address] Social History Tobacco Use Types Packs/Day Years [...] encounter Miscellaneous Notes * Telephone Encounter - Codi Gomez - 07/10/2024 2:04 PM EST Tc from pt calling to inform went to warp picker medication Omeprazole 20 MG tablet delayed-release butstates does not drink tablets and if provider can switch over to capsules. documented in this encounter Plan of Treatment Not on file documented as of this encounter Visit Diagnoses Not on filedocumented in this encounter Additional Health Concerns Assessment Noted Time PHQ-9 Depression Total Score: 4 06/15/20 24 1:33 PM EST documented as of this encounter Care Teams Conservation Science Teacher Relationship Specialty Start Date End Date Arnulfo Maria MD [address] [place] [phone] PCP - General Internal Medicine 06/15/24 documented as of this encounter
== END 2024-07-31 09:01 | disposition home or self-care (01) ==
LOC: HO.MAMMO 09:00
PROVIDERS: PCP Internal Medicine; Visit Provider Internal Medicine
DX: Z12.31 Encounter for screening mammogram for malignant neoplasm of breast (principal)
CPT/HCPCS: 77063; 77067

== ENCOUNTER → 2024-07-31 09:45 | Outpatient (BNV) | payer MEDICARE, SELFPAY | PROVIDERS: PCP Internal Medicine; Visit Provider Internal Medicine | DX: Z12.31 Encounter for screening mammogram for malignant neoplasm of breast (principal) | CPT/HCPCS: 77063; 77067 ==

== ENCOUNTER 2024-09-06 10:35 | Outpatient (REF) | payer MEDICARE, SELFPAY ==
--- NOTE | ~2024-09-06 | MM_ITS ---
EXAMINATION: MM DIAGNOSTIC DIGITAL BREAST TOMOSYNTHESIS, BILATERAL CLINICAL INFORMATION: Call back from baseline screening for bilateral oval masses. COMPARISON: Mammography: Comparison is made with relevant prior exams. TECHNIQUE: Digital breast mammography with tomosynthesis is performed in both the craniocaudal and mediolateral oblique views along with computer-aided detection (CAD). FINDINGS: There are scattered areas of fibroglandular density (ACR BI-RADS breast composition Category b). Bilateral circumscribed oval masses persist in the upper outer quadrants. No suspicious masses calcifications or other abnormal findings. Targeted color Doppler ultrasound scanning in the left breast at 2:00 8 cm from nipple demonstrates a normal intramammary lymph node. Targeted color Doppler ultrasound scanning in the right breast at 10:00 8 cm from nipple demonstrates a normal intramammary lymph node. Both of these intramammary lymph nodes correlate with the circumscribed oval masses seen in mammography and are benign. Results are provided to the patient at time of visit by the technologist. MM/MM tomosynthesis added view BI IMPRESSION: Bilateral normal intramammary lymph nodes. ASSESSMENT: BI-RADS BI-RADS 2 - Benign Findings RECOMMENDATION: 1 year F/U This patient's information was entered into a reminder system with a target due date for their next mammogram. Electronically signed by: Ernestina Pitts DO 09/06/2024 11:47 AM [facility]
--- OUTSIDE RECORDS SUMMARY | 2024-09-06 12:33 | XMS_ITS | Encounter Summary ---
Author Organization [employer] Address [address] [facility] [address] [place] [address] Care Team Providers Care Local Announcer Name Role Phone Arnulfo Maria MD Primary Care Prov ider Reason for Visit * Reason Comments Med Refill Encounter Details Date Type Department Care Team ([facility] Contact Info) Description 08/12/2024 Refill [facility] PEDS [address] [place] [address] Arnulfo Maria MD [address] [place], [place] [phone] Social History Tobacco Use Types Packs/Day Years [...] documented as of this encounter Care Teams Local Announcer Relationship Specialty Start Date End Date Arnulfo Maria MD [address] [place] [phone] PCP - General Internal Medicine 06/15/24 documented as of this encounter
--- OUTSIDE RECORDS SUMMARY | 2024-09-06 12:33 | XMS_ITS | Encounter Summary ---
Author Organization [employer] Address [address] [facility] 7[address] [place] [address] Care Team Providers Care Director Of Mechanical Engineering Name Role Phone Arnulfo Maria MD Primary Care Prov ider Encounter Details Date Type Department Care Team ([facility] st Contact Info) Description 09/06/2024 Orders Only [facility] MED & PEDS [address] [place], [place] [phone] Arnulfo Maria MD [address] [place], [place] [phone] Social History Tobacco Use Types Packs/Day Years [...] on file documented as of this encounter Procedures Procedure Name Priority Date/Time Associated Diagnosis Comments BI US BREAST LIMITED BILATERAL Routine 09/06/2024 11:30 AM EST BI MAMMOGRAM DIAGNOSTIC TOMOSYNTHESIS ADDED VIEW BILATERAL Routine 09/06/2024 11:00 AM EST documented in this encounter Results * BI US Breast Limited Bilateral (09/06/2024 11:30 AM EST) Anatomical Region Laterality Modality Breast Bilateral Ultrasound 09/06/2024 11:3 0 AM EST Narrative 09/06/2024 11:49 AM EST ? [facility] ? [address] [facility] ?[place] [address] ? Ultrasound Report ? Signed ? Patient: Ashley Faulkner ?MR#: MM ?? [id number] ? : 1960 ?Acct:[id number] ? Age/Sex: 64 / F ?ADM Date: 03/05/25 ? Loc: HO.MAMMO ? Attending Dr: Arnulfo Bates MD ? Ordering Physician: Arnulfo Maria MD ?? Date of Service: 09/06/24 ?? Procedure(s): US breast BI limited mamm only ?? Accession Number(s): [id number] ? cc: Arnulfo Maria MD ? EXAMINATION: ?? MM DIAGNOSTIC DIGITAL BREAST TOMOSYNTHESIS, BILATERAL ? CLINICAL INFORMATION: ? Call back from baseline screening for bilateral oval masses. ? COMPARISON: ?? Mammography: Comparison is made with relevant prior exams. ? TECHNIQUE: ?? Digital breast mammography with tomosynthesis is performed in both the ?? craniocaudal and mediolateral oblique views along with computer-aided ?? detection (CAD). ? FINDINGS: ?? There are scattered areas of fibroglandular density (ACR BI-RADS breast ?? composition Category b). ?? Bilateral circumscribed oval masses persist in the upper outer ?? quadrants. ?? No suspicious masses calcifications or other abnormal findings. ? Targeted color Doppler ultrasound scanning in the left breast at 2:00 8 ?? cm from nipple demonstrates a normal intramammary lymph node. ?? Targeted color Doppler ultrasound scanning in the right breast at 10:00 ?? 8 cm from nipple demonstrates a normal intramammary lymph node. ?? Both of these intramammary lymph nodes correlate with the circumscribed ?? oval masses seen in mammography and are benign. ? Results are provided to the patient at time of visit by the ?? technologist. ? US/US breast BI limited mamm only ?? IMPRESSION: ?? Bilateral normal intramammary lymph nodes. ? ASSESSMENT: ? BI-RADS BI-RADS 2 - Benign Findings ? RECOMMENDATION: ?? 1 year F/U ? This patient's information was entered into a reminder system with a ?? target due date for their next mammogram. ? Electronically signed by: ??Ernestina Pitts DO ??09/06/2024 11:47 AM EST ?? RP ? Dictated By: ?Ernestina Pitts DO ? Signed By: ?<Electronically signed by Ernestina Pitts, DO in OV> ? 09/06/24 1147 ? DD/ 1130 ? TD/TT: 09/06/24 1143 ? Strategy Analyst: ? Procedure Note Venice Mccormack - 09/06/2024 [facility] [address] [place] [address] Dr. Farah, [place] [address] Ultrasound Report Signed Patient: Ashley Faulkner AMR#: [id number] : 8Acct:[id number] Age/Sex: 64 / FADM Date: 09/06/24 Loc: HO.MAMMO Attending Dr: Arnulfo Bates MD Ordering Physician: Arnulfo Maria MD Date of Service: 09/06/24 Procedure(s): US breast BI limited mamm only Accession Number(s): [id number] cc: Arnulfo Maria MD EXAMINATION: MM DIAGNOSTIC DIGITAL BREAST TOMOSYNTHESIS, BILATERAL CLINICAL INFORMATION: Call back from baseline screening for bilateral oval masses. COMPARISON: Mammography: Comparison is made with relevant prior exams. TECHNIQUE: Digital breast mammography with tomosynthesis is performed in both the craniocaudal and mediolateral oblique views along with computer-aided detection (CAD). FINDINGS: There are scattered areas of fibroglandular density (ACR BI-RADS breast composition Category b). Bilateral circumscribed oval masses persist in the upper outer quadrants. No suspicious masses calcifications or other abnormal findings. Targeted color Doppler ultrasound scanning in the left breast at 2:00 8 cm from nipple demonstrates a normal intramammary lymph node. Targeted color Doppler ultrasound scanning in the right breast at 10:00 8 cm from nipple demonstrates a normal intramammary lymph node. Both of these intramammary lymph nodes correlate with the circumscribed oval masses seen in mammography and are benign. Results are provided to the patient at time of visit by the technologist. US/US breast BI limited mamm only IMPRESSION: Bilateral normal intramammary lymph nodes. ASSESSMENT: BI-RADS BI-RADS 2 - Benign Findings RECOMMENDATION: 1 year F/U This patient's information was entered into a reminder system with a target due date for their next mammogram. Electronically signed by: Ernestina Pitts DO 09/06/2024 11:47 AM EST Dictated By: Ernestina Pitts DO Signed By: <Electronically signed by Ernestina Pitts DO in OV> 09/06/24 1147 DD/ 1130 TD/TT: 09/06/24 1143 Strategy Analyst: us Arnulfo Bates MD IMG US PROCEDURES Edited Result - Final * BI Mammogram Diagnostic Tomosynthesis added bilateral (09/06/2024 11:00 AM EST) Anatomical Region Laterality Modality Breast Left Mammography 09/06/2024 11:0 0 AM EST Narrative 09/06/2024 11:49 AM EST ? [facility] ? [address] ?[place], [place] [address] ? Mammography Report ? Signed ? Patient: Ashley Faulkner ?MR#: MM ?? [id number] ? : 1960 ?Acct:[id number] ? Age/Sex: 64 / F ?ADM Date: 09/06/24 ? Loc: HO.MAMMO ? Attending Dr: Arnulfo Bates MD ? Ordering Physician: Arnulfo Maria MD ?Res ?? ults: 2Benign Findings ? Date of Service: 09/06/24 ?Follow Up: 1 Year From Orig ?? inal Mammogram ? Procedure(s): MM tomosynthesis added view BI ?? Accession Number(s): [id number] ? cc: Arnulfo Maria MD ? EXAMINATION: ?? MM DIAGNOSTIC DIGITAL BREAST TOMOSYNTHESIS, BILATERAL ? CLINICAL INFORMATION: ? Call back from baseline screening for bilateral oval masses. ? COMPARISON: ?? Mammography: Comparison is made with relevant prior exams. ? TECHNIQUE: ?? Digital breast mammography with tomosynthesis is performed in both the ?? craniocaudal and mediolateral oblique views along with computer-aided ?? detection (CAD). ? FINDINGS: ?? There are scattered areas of fibroglandular density (ACR BI-RADS breast ?? composition Category b). ?? Bilateral circumscribed oval masses persist in the upper outer ?? quadrants. ?? No suspicious masses calcifications or other abnormal findings. ? Targeted color Doppler ultrasound scanning in the left breast at 2:00 8 ?? cm from nipple demonstrates a normal intramammary lymph node. ?? Targeted color Doppler ultrasound scanning in the right breast at 10:00 ?? 8 cm from nipple demonstrates a normal intramammary lymph node. ?? Both of these intramammary lymph nodes correlate with the circumscribed ?? oval masses seen in mammography and are benign. ? Results are provided to the patient at time of visit by the ?? technologist. ? MM/MM tomosynthesis added view BI ?? IMPRESSION: ?? Bilateral normal intramammary lymph nodes. ? ASSESSMENT: ? BI-RADS BI-RADS 2 - Benign Findings ? RECOMMENDATION: ?? 1 year F/U ? This patient's information was entered into a reminder system with a ?? target due date for their next mammogram. ? Electronically signed by: ??Ernestina Pitts DO ??09/06/2024 11:47 AM EST ? Dictated By: ?Ernestina Pitts DO ? Signed By: ?<Electronically signed by Ernestina Pitts, DO in OV> ? 09/06/24 1147 ? DD/ 1100 ? TD/TT: 09/06/24 1115 ? Strategy Analyst: ? Procedure Note Ksenia, Image - 09/06/2024 [facility] [address] [place] [address] Dr. [place], [place] [address] Mammography Report Signed Patient: Ashley Faulkner [facility]#: [id number] : 8Acct:[id number] Age/Sex: 64 / FADM Date: 09/06/24 Loc: [facility]ORIE[facility] Attending Dr: Arnulfo Bates MD Ordering Physician: Arnulfo Maria ults: 2Benign Findings Date of Service: 09/06/24Follow Up: 1 Year From Orig ina Mammogram Procedure(s): MM tomosynthesis added view BI Accession Number(s): [id number] cc: Arnulfo Maria MD EXAMINATION: MM DIAGNOSTIC DIGITAL BREAST TOMOSYNTHESIS, BILATERAL CLINICAL INFORMATION: Call back from baseline screening for bilateral oval masses. COMPARISON: Mammography: Comparison is made with relevant prior exams. TECHNIQUE: Digital breast mammography with tomosynthesis is performed in both the craniocaudal and mediolateral oblique views along with computer-aided detection (CAD). FINDINGS: There are scattered areas of fibroglandular density (ACR BI-RADS breast composition Category b). Bilateral circumscribed oval masses persist in the upper outer quadrants. No suspicious masses calcifications or other abnormal findings. Targeted color Doppler ultrasound scanning in the left breast at 2:00 8 cm from nipple demonstrates a normal intramammary lymph node. Targeted color Doppler ultrasound scanning in the right breast at 10:00 8 cm from nipple demonstrates a normal intramammary lymph node. Both of these intramammary lymph nodes correlate with the circumscribed oval masses seen in mammography and are benign. Results are provided to the patient at time of visit by the technologist. MM/MM tomosynthesis added view BI IMPRESSION: Bilateral normal intramammary lymph nodes. ASSESSMENT: BI-RADS BI-RADS 2 - Benign Findings RECOMMENDATION: 1 year F/U This patient's information was entered into a reminder system with a target due date for their next mammogram. Electronically signed by: Ernestina Pitts DO 09/06/2024 11:47 AM EST Dictated By: Ernestina Pitts DO Signed By: <Electronically signed by Ernestina Pitts DO in OV> 09/06/24 1147 DD/ 1100 TD/TT: 09/06/24 1115 Strategy Analyst: Arnulfo Bates MD [facility] BI PROCEDURES Edited Result - Final documented in this encounter Visit Diagnoses Not on filedocumented in this encounter Additional Health Concerns Assessment Noted Time PHQ-9 Depression Total Score: 4 06/15/20 24 1:33 PM EST documented as of this encounter Care Teams Director Of Mechanical Engineering Relationship Specialty Start Date End Date Arnulfo Maria MD [address] [place] [id number] PCP - General Internal Medicine 06/15/24 documented as of this encounter
--- OUTSIDE RECORDS SUMMARY | 2024-09-06 12:33 | XMS_ITS | Encounter Summary ---
Author Organization [employer] Address [address] [facility] [address] [place] [address] Care Team Providers Care Medical Management Specialist Name Role Phone Arnulfo Maria MD Primary Care Prov ider Reason for Visit * Reason Onset Date Comments new patient visit 05/08/2024 Encounter Details Date Type Department Care Team ([facility] st Contact Info) Description 05/08/2024 Telephone [facility] MEDIC[facility] [address] [place] [address] Arnulfo Maria MD [address] [place], [place] [phone] new patient visit Social History Tobacco Use [...] on filedocumented in this encounter Care Teams Medical Management Specialist Relationship Specialty Start Date End Date Arnulfo Maria MD [address] [place] [id number] PCP - General Internal Medicine 06/15/24 documented as of this encounter
--- OUTSIDE RECORDS SUMMARY | 2024-09-06 12:33 | XMS_ITS ---
Author Organization [facility] Address [address] [place] [address] Care Team Providers Care Sole Stainer Name Role Phone Isidro Zayas Primary Care Provider Tracey Bhatti MD, Burak Unavailable [phone] REASON FOR VISIT INS KEN Social History Sex Assigned At : Social History Observation Description Sex Assigned At Female Encounters Encounter Location Date Provider Diagnosis [facility] [address] [place] [address] 01/26/2024 Burak Bhatti Plan Of Treatment No Information Progress Notes * NIA PUGA ADOB: (63 yo F)Acc No.[id number]:01/26/2024 Patient:?NIA PUGA :1960???Age:63 Y???Sex:Female Address:[address] [place] [address], [phone] * true * Date:? Generated for Rosiei faviola/Nghia/eTransmitting on:?09/06/2024 12:32 PM EST
--- OUTSIDE RECORDS SUMMARY | 2024-09-06 12:33 | XMS_ITS | Encounter Summary ---
Author Organization [employer] Address [address] [facility] [address] [place] [address] Care Team Providers Care Return Agent Name Role Phone Arnulfo Maria MD Primary Care Prov ider Reason for Visit * Reason Comments Med Refill Encounter Details Date Type Department Care Team ([facility] Contact Info) Description 09/05/2024 Refill [facility] CH[facility] MED & PEDS [address] [place] [address] Arnulfo Maria MD [address] [place], [place] [phone] Social History Tobacco Use Types Packs/Day Years [...] documented as of this encounter Care Teams Return Agent Relationship Specialty Start Date End Date Arnulfo Maria MD [address] [place] [phone] PCP - General Internal Medicine 06/15/24 documented as of this encounter
--- OUTSIDE RECORDS SUMMARY | 2024-09-06 12:33 | XMS_ITS | Encounter Summary ---
Author Organization [employer] Address [address] [facility] [address] [place] [address] Care Team Providers Care Mgmt Specialist Name Role Phone Arnulfo Maria MD Primary Care Prov ider Encounter Details Date Type Department Care Team (Latest Contact Info) Description 08/07/2024 Travel Social History Tobacco Use Types Packs/Day [...] documented as of this encounter Care Teams Mgmt Specialist Relationship Specialty Start Date End Date Arnulfo Maria MD [address] [place] [phone] PCP - General Internal Medicine 06/15/24 documented as of this encounter
--- OUTSIDE RECORDS SUMMARY | 2024-09-06 12:33 | XMS_ITS | Clinical Summary ---
Author Organization [employer] Address [address] [facility] [address] [place] [address] Care Team Providers Care Potato Loader Name Role Phone Arnulfo Maria MD Primary Care Prov ider Allergies Active Allergy Reactions Criticality Noted Date Comments Penicillin G Rash Low 06/15/2024 Medications gabapentin (Neurontin) 300 MG capsule Take 1 capsule (300 mg) by mouth 3 times daily. 90 capsule 2 4 09/14/19 25 Active losartan-hydro CHLOROthiazide (Hyzaar) 100-25 MG tablet Take 1 tablet by mouth Once per day. 90 tablet 3 4 06/16/20 25 Active omeprazole (PriLOSEC) [address] capsule Take 1 capsule (20 mg) by mouth before breakfast. Do not crush or chew. 90 capsule 3 5 Active amLODIPine (Norvasc) 5 MG tablet Take 1 tablet (5 mg) by mouth Once per day. 30 tablet 5 07/26/19 26 Active atorvastatin (Lipitor) 40 MG tablet Take 1 tablet (40 mg) by mouth Once per day. 30 tablet 11 5 07/26/19 26 Active QUEtiapine (SEROquel) 50 MG tablet TAKE 1 TABLET(50 MG) BY MOUTH AT BEDTIME 30 tablet 5 Active montelukast (Singulair) 10 MG tablet TAKE 1 TABLET(10 MG) BY MOUTH DAILY 30 tablet 2 5 Active montelukast (Singulair) 10 MG tablet Take 1 tablet (10 mg) by mouth Once per day. 30 tablet 2 4 08/15/19 25 Discontinued QUEtiapine (SEROquel) 50 MG tablet TAKE 1 TABLET(50 MG) BY MOUTH AT BEDTIME 30 tablet 5 08/09/19 25 Discontinued Active Problems Problem Noted Date Diagnosed Date Pre-op evaluation 08/08/2024 Assessment & Plan (08/08/2024 11:36 PM EST): Patient will undergo a cataract surgery. She denied chest pain or shortness of breath. Procedure is low risk, told to avoid asa/nsaids 5 days prior procedure, take blood pressure medication as indicated. She is cleared for procedure 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 n euro comp 07/26/2024 Primary hypertension 07/26/2024 Assessment & Plan (07/26/2024 11:55 AM EST): Uncontrolled, will add amlodipine, continue low sodium diet and exercise as tolerated, follow up in 1 month Encounter for medical examination to establish c are 06/15/2024 Assessment & Plan (06/15/2024 1:26 PM EST): ER visit on the past year: May on [facility] due to flu and asthma exacerbation [...] Plan (06/15/2024 1:32 PM EST): Done on [place] on July 2023,, will place new order Screening for colon cancer 06/15/2024 Assessment & Plan (06/15/2024 1:32 PM EST): Will refer for screening colon cancer Encounters Date Type Department Care Team Description 09/06/2024 Orders Only [facility] [address] [place] [address] Arnulfo Maria MD 09/05/2024 Refill [facility] [address] [place] [address] Arnulfo Maria MD 08/12/2024 Refill [facility] [address] [place] [address] Arnulfo Maria MD 08/07/2024 1:45 PM EST Office Visit [facility] [address] [place] [address] Arnulfo Maria MD Pre-op evaluation (Primary Dx) 08/07/2024 Travel 08/06/2024 Refill [facility] [address] [place] [address] Sandeep Ren MD 07/26/2024 10:15 AM EST Telemedicine [facility] [address] [place] [address] Arnulfo Maria MD 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 neuro comp ([facility]) (Primary Dx); Dietary counseling; Exercise counseling; Primary hypertension 07/26/2024 Telephone [facility] [address] [place] [phone] Arnulfo Maria MD Pre-op Exam 07/26/2024 Travel 07/25/2024 Telephone [facility] [address] [place] [address] Arnulfo Maria MD chart prep 07/13/2024 Telephone [facility] [address] [place] [address] Arnulfo Maria MD 07/10/2024 Refill [facility] [address] [place] [address] Arnulfo Maria MD 07/10/2024 Refill [facility] [address] [place] [address] Arnulfo Maria MD 06/19/2024 Telephone [facility] [address] [place] [address] Arnulfo Maria MD 06/16/2024 Refill [facility] [address] [place] [address] Arnulfo Maria MD 06/15/2024 1:00 PM EST Office Visit [facility] [address] [place] [address] Arnulfo Maria MD Encounter for medical examination to establish care (Primary Dx); Primary hypertension; Encounter for screening mammogram for malignant neoplasm of breast; Screening for colon cancer; Lead-induced gout involving toe, unspecified chronicity, unspecified laterality, initial encounter 06/15/2024 [facility]phone [facility] [address] [place], [place] [phone] Arnulfo Maria MD 06/15/2024 Orders Only [facility] [address] [place] [address] Arnulfo Maria MD Dysuria (Primary Dx) 06/15/2024 Travel from Last 3 Months Family History Medical [...] Sign Reading Time Taken Comments Blood Pressure 140/69 08/07/2024 1:36 PM EST Pulse 74 08/07/2024 1:36 PM EST Temperature 36.6 ??C (97.8 ??F) 08/07/2024 1:36 PM ES T Respiratory Rate 16 08/07/2024 1:36 PM EST Oxygen Saturation 98% 06/15/2024 1:14 PM EST Inhaled Oxygen Concentration - - Weight 74.8 kg (165 lb) 08/07/2024 1:36 PM EST Height 160 cm (5' 3 ) 08/07/2024 1:36 PM EST Body Mass Index 29.23 08/07/2024 1:36 PM EST Plan of Treatment Health Maintenance Due Date Last Done Comments CT Colonography 1958 Colonoscopy 1958 Colorectal Cancer Screening 1960 FIT DNA/Cologuard 1958 FIT 1958 FOBT 1960 Sigmoidoscopy 1958 Diabetes: Foot Exam 02/15/1968 Eye Exam 02/15/1968 Alcohol/Substance Use Screening 1970 DTaP/Tdap/Td Vaccines (1 - Tdap) 1977 Diabetes: Urine Protein Screening 1977 Pneumococcal Vaccine: 50+ Years (1 of 2 - PCV) 1977 Zoster Vaccines (1 of 2) 02/15/2008 COVID-19 Vaccine ( - 2023-2 5 season) 2024 Influenza Vaccine (#1) 2024 Diagnostic Breast Imaging 09/01/2024 09/06/2024 Diabetes: Hemoglobin A1C 09/14/2024 06/16/2024 SDOH Screening 06/05/2025 06/05/2024 Depression Screening [...] VIEW BILATERAL Routine 09/06/2024 11:00 AM EST BI MAMMOGRAM SCREENING TOMOSYNTHESIS BILATERAL Routine 07/31/2024 9:45 AM EST Encounter for screening mammogram for malignant neoplasm of breast URINALYSIS, COMPLETE, WITH REFLEX TO CULTURE Routine [...] Dysuria from Last 3 Months Results * BI US Breast Limited Bilateral (09/06/2024 11:30 AM EST) Anatomical Region Laterality Modality Breast Bilateral Ultrasound 09/06/2024 11:3 0 AM EST Narrative 09/06/2024 11:49 AM EST ? [facility] [place] [facility] ? [address] ?[place] [address] ? Ultrasound Report ? Signed ? Patient: Woods Prakash,Ada ?MR#: MM ?? [id number] ? : 1960 ?Acct:[id number] ? Age/Sex: 64 / F ?ADM Date: 03/05/25 ? Loc: HO.MAMMO ? Attending Dr: Arnulfo Bates MD ? Ordering Physician: Arnulfo Maria MD ?? Date of Service: 09/06/24 ?? Procedure(s): US breast BI limited mamm only ?? Accession Number(s): [id number] ? cc: Arnulfo Maria MD ? EXAMINATION: [...] DD/ 1130 ? TD/TT: 09/06/24 1143 ? Set Builder: ? Procedure Note [place], [place] - 09/06/2024 [facility] [address] [place], [place] [address] Ultrasound Report Signed Patient: Ashley Faulkner AMR#: [id number] : 8Acct:[id number] Age/Sex: 64 / FADM Date: 09/06/24 Loc: HO.MAMMO Attending Dr: Arnulfo Bates MD Ordering Physician: Arnulfo Maria MD Date of Service: 09/06/24 Procedure(s): US breast BI limited mamm only Accession Number(s): [id number] cc: Arnulfo Maria MD EXAMINATION: MM DIAGNOSTIC [...] by: Ernestina Pitts DO 09/06/2024 11:47 AM [facility] Dictated By: Ernestina Pitts DO Signed By: <Electronically signed by Ernestina Pitts DO in OV> 09/06/24 1147 DD/ 1130 TD/TT: 09/06/24 1143 Set Builder: Arnulfo CALERO US PROCEDURES Edited Result - Final * BI Mammogram Diagnostic Tomosynthesis added bilateral (09/06/2024 11:00 AM EST) Anatomical Region Laterality Modality Breast Left Mammography 09/06/2024 11:0 0 AM EST Narrative 09/06/2024 11:49 AM EST ? [facility] ? [address] ?[place] [address] ? Mammography Report ? Signed ? Patient: Chuck Ashley Prakash ?MR#: MM ?? [id number] ? : 1960 ?Acct:[id number] ? Age/Sex: 64 / F ?ADM Date: 09/06/24 ? Loc: HO.MAMMO ? Attending Dr: Arnulfo Bates MD ? Ordering Physician: Arnulfo Maria MD ?Res ?? ults: 2Benign Findings ? Date of Service: 09/06/24 ?Follow Up: 1 Year From Orig ?? inal Mammogram ? Procedure(s): MM tomosynthesis added view BI ?? Accession Number(s): [id number] ? cc: Arnulfo Maria MD ? EXAMINATION: [...] DD/ 1100 ? TD/TT: 09/06/24 1115 ? Set Builder: ? Procedure Note [place] Mccormack - 09/06/2024 [facility] [address] [place] [address] [place] [address] Mammography Report Signed Patient: Ashley Faulkner AMR#: [id number] : 8Acct:[id number] Age/Sex: 64 / FADM Date: 09/06/24 Loc: HO.MAMMO Attending Dr: Arnulfo Bates MD Ordering Physician: Arnulfo Maria ults: 2Benign Findings Date of Service: 09/06/24Follow Up: 1 Year From Orig inal Mammogram Procedure(s): MM tomosynthesis added view BI Accession Number(s): [id number] cc: Arnulfo Maria MD EXAMINATION: MM DIAGNOSTIC [...] 09/06/24 1147 DD/ 1100 TD/TT: 09/06/24 1115 Set Builder: Arnulfo Bates MD IMG BI PROCEDURES Edited Result - Final * BI Mammogram Screening Tomosynthesis Bilateral (07/31/2024 9:45 AM EST) Anatomical Region Laterality Modality Breast Bilateral Mammography 07/31/2024 9:45 AM EST Narrative 08/08/2024 3:42 PM EST ? [facility] [place] [facility] ? [address] ?[place], [place] [address] ? Mammography Report ? Signed ? Patient: Ashley Faulkner ?MR#: MM ?? [id number] ? : 1960 ?Acct:[id number] ? Age/Sex: 64 / F ?ADM Date: 07/31/24 ? Loc: HO.MAMMO ? Attending Dr: Arnulfo Bates MD ? Ordering Physician: Arnulfo Maria MD ? Results: 0Incomplete: Needs Additional Imaging ?? Evaluation ? Date of Service: 07/31/ ?Follow Up: Additional Imagi ?? ng ? Procedure(s): MM tomosynthesis screening BI ?? Accession Number(s): [id number] ? cc: Arnulfo Maria MD ? EXAMINATION: ?? MM SCREENING DIGITAL BREAST TOMOSYNTHESIS, BILATERAL ? CLINICAL INFORMATION: ? Screening. Asymptomatic. ? COMPARISON: ?? Mammography: Comparison is made with available priors ? TECHNIQUE: ?? Digital breast mammography with tomosynthesis is performed in both the ?? craniocaudal and mediolateral oblique views along with computer-aided ?? detection (CAD). ? FINDINGS: ?? There are scattered areas of fibroglandular density (ACR BI-RADS breast ?? composition Category b). ?? Left: Focal asymmetry upper outer breast question intramammary lymph ?? node. ?? No suspicious calcifications or other abnormal findings. ? Right: ?? Circumscribed oval mass upper outer breast question intramammary lymph ?? node. ?? No suspicious calcifications or other abnormal findings. ? MM/MM tomosynthesis screening BI ?? IMPRESSION: ?? Additional imaging is recommended ? ASSESSMENT: ? BI-RADS BI-RADS 0 - Incomplete: Needs additional Imaging. ? RECOMMENDATION: ?? 1. Additional views of the bilateral breasts. ?? 2. Targeted ultrasound if warranted after review of the additional ?? views. ?? 3. Radiology department staff will contact the patient for additional ?? imaging. ? Additional Imaging required ? This examination should not preclude the clinical evaluation of a ?? suspicious palpable abnormality. ? This patient's information was entered into a reminder system with a ?? target due date for their next mammogram. ? Electronically signed by: ??Ernestina Pitts DO ??08/08/2024 03:39 PM EST ?? RP ? Dictated By: ?Ernestina Pitts DO ? Signed By: ?<Electronically signed by Ernestina Pitts DO in OV> ? 08/08/24 1539 ? DD/ 0945 ? TD/TT: 07/31/24 1000 ? Set Builder: ? Procedure Note [place], [place] - 08/08/2024 [facility] [address] [place] [address] [place] [address] Mammography Report Signed Patient: Ashley Faulkner AMR#: [id number] : 8Acct:[id number] Age/Sex: 64 / FADM Date: 07/31/24 Loc: HO.MAMMO Attending Dr: Arnulfo Bates MD Ordering Physician: Arnulfo Maria MD Results: 0Incomplete: Needs Additional Imaging Evaluation Date of Service: 07/31/24Follow Up: Additional Imagi ng Procedure(s): MM tomosynthesis screening BI Accession Number(s): [id number] cc: Arnulfo Maria MD EXAMINATION: MM SCREENING DIGITAL BREAST TOMOSYNTHESIS, BILATERAL CLINICAL INFORMATION: Screening. Asymptomatic. COMPARISON: Mammography: Comparison is made with available priors TECHNIQUE: Digital breast mammography with tomosynthesis is performed in both the craniocaudal and mediolateral oblique views along with computer-aided detection (CAD). FINDINGS: There are scattered areas of fibroglandular density (ACR BI-RADS breast composition Category b). Left: Focal asymmetry upper outer breast question intramammary lymph node. No suspicious calcifications or other abnormal findings. Right: Circumscribed oval mass upper outer breast question intramammary lymph node. No suspicious calcifications or other abnormal findings. MM/MM tomosynthesis screening BI IMPRESSION: Additional imaging is recommended ASSESSMENT: BI-RADS BI-RADS 0 - Incomplete: Needs additional Imaging. RECOMMENDATION: 1. Additional views of the bilateral breasts. 2. Targeted ultrasound if warranted after review of the additional views. 3. Radiology department staff will contact the patient for additional imaging. Additional Imaging required This examination should not preclude the clinical evaluation of a suspicious palpable abnormality. This patient's information was entered into a reminder system with a target due date for their next mammogram. Electronically signed by: Ernestina Pitts DO 08/08/2024 03:39 PM EST Dictated By: Ernestina Pitts DO Signed By: <Electronically signed by Ernestina Pitts DO in OV> 08/08/24 1539 DD/ 0945 TD/TT: 07/31/24 1000 Set Builder: us Arnulfo Bates MD IMG BI PROCEDURES Final Result * (ABNORMAL) Urinalysis, Complete, with Reflex to Culture (06/16/2024 9:30 AM EST) Color Urine Yellow [facility] Appearance Urine Clear [facility] PH 6.5 5.0 - 9.0 [facility] Glucose Urine UA Negative Negative mg/dL [facility] Urine Blood Negative Negative [facility] Specific [place]ston - Urine 1.015 1.005 - 1.025 [facility] Urine Protein Negative Neg-Trace mg/dL [facility] Urine Ketones Negative Negative mg/dL [facility] Nitrite Urine Negative Negative [facility] Leukocyte Esterase Urine Small (1+)(A) Negative [facility] RBC Urine 0-2 0 - 2 /HPF [facility] Urine WBC 0-5 0 - 5 /HPF [facility] Urine Squamous Epithelial Cell 0-2 0 - 2 /HPF [facility] Urine Bacteria None Seen None Seen [facility] Hyaline Casts, Urine 0-2 0 - 2 /LPF [facility] Urine 06/16/2024 9:30 AM EST 06/16/2024 2:01 PM EST Narrative [facility] - 06/16/2024 2:22 PM EST [id number], Clean Catch us Arnulfo Bates MD LAB URINE ORDERABL ES Final Result Performing Organization Address [facility] Co de Phone Number [facility] [address] [place] [phone] * TSH W/Reflex to FT4 (06/16/2024 8:52 AM EST) TSH reflex Free T4 2.49 0.32 - 4.0 uIU/mL [facility] Blood Venous blood specimen / Unknown 06/16/2024 8:52 AM EST 06/16/2024 2:18 PM EST us Arnulfo Bates MD LAB BLOOD ORDERABL ES Final Result Performing Organization Address [facility]/ZIP Co de Phone Number [facility] [address] [place] [phone] * (ABNORMAL) CBC auto differential (06/16/2024 8:52 AM EST) White Blood Count 6.1 4.8 - 10.8 X10*3/uL [facility] Red Blood Count 4.26 4.20 - 5.50 X10*6/uL [facility] Hemoglobin 11.8(L) 12.0 - 16.0 g/dl [facility] Hematocrit 37.7 37.0 - 47.0 % [facility] Mean Corpuscular Volume 88.5 80.0 - 98.0 fL [facility] Mean Corpuscular Hemoglobin 27.7 27.0 - 33.0 pg [facility] Mean Corpuscular HGB Conc 31.3 31.0 - 35.0 g/dl [facility] Red Cell Distribution Width 13.5 11.0 - 16.0 % [facility] Platelet Count 343 160 - 400 X10*3/uL [facility] Mean Platelet Volume 11.3 9.4 - 12.3 fL [facility] Neutrophils Percent Auto 56.6 45 - 73 % [facility] Imm Gran Pct Auto 0.2 0.0 - 0.4 % [facility] Lymphocytes Percent Auto 33.9 20 - 40 % [facility] Monocytes Percent Auto 5.7 2 - 11 % [facility] Eosinophils Percent Auto 2.3 0 - 4 % [facility] Basophils Percent Auto 1.3 0 - 2 % [facility] NRBC Pct Auto 0.0 0.0 - 0.2 /100WBC [facility] Neutrophils Absolute Auto 3.5 2.0 - 8.3 x10*3/uL [facility] Imm Gran Abs Auto 0.01 0.00 - 0.03 X10*3/uL [facility] Lymphocytes Absolute Auto 2.1 1.2 - 4.9 X10*3/uL [facility] Monocytes Absolute Auto 0.4 0.1 - 1.2 X10*3/uL [facility] Eosinophils Absolute Auto 0.1 0.0 - 0.4 X10*3/uL [facility] Basophils Absolute Auto 0.1 0.0 - 0.2 X10*3/uL [facility] NRBC Abs Auto 0.000 0.0 - 0.012 X10*3/uL [facility] Blood Venous blood specimen / Unknown 06/16/2024 8:52 AM EST 06/16/2024 2:14 PM EST Arnulfo Bates MD LAB BLOOD ORDERABL ES Final Result Performing Organization Address [facility] Co de Phone Number [facility] [address] [place] [phone] * Hepatitis C Antibody with Reflex to HCV, RNA, Quantitative, Real-Time PCR (06/16/2024 8:52 AM EST) Hepatitis C Antibody Nonreactive Nonreactive [facility] Comment:Antibodies to HCV no t detected; does not exclude early acuteHCV infection. Blood Venous blood specimen / Unknown 06/16/2024 8:52 AM EST 06/16/2024 2:18 PM EST Arnulfo Bates MD LAB BLOOD ORDERABL ES Final Result Performing Organization Address [facility] Co de Phone Number [facility] [address] [place] [phone] * HIV-1/2 Antigen and Antibodies, Fourth Generation, with Reflexes (06/16/2024 8:52 AM EST) HIV AB/AG Nonreactive Nonreactive [facility] Comment:HIV-1 p24 Ag and/or HIV-1/HIV-2 Ab not detected.A test result that is nonreactive does not exclude thepossibility of exposure to or infection with HIV-1 and/orHIV-2. Nonreactive results in this assay for individualswith prior exposure to HIV-1 and/or HIV-2 may be due toantigen and antibody levels that are below the limit ofdetection of this assay.The [employer] HIV Ag/Ab Combo assay result andsupplemental assay results should be interpreted inconjunction with the patient's clinical presentation,history and other laboratory results. If the results areinconsistent with clinical evidence, additional testing issuggested to confirm the result. Blood Venous blood specimen / Unknown 06/16/2024 8:52 AM EST 06/16/2024 2:18 PM EST Arnulfo Bates MD LAB BLOOD ORDERABL ES Final Result Performing Organization Address [facility] Co de Phone Number [facility] [address] [place] [phone] * (ABNORMAL) Uric acid (06/16/2024 8:52 AM EST) Uric Acid 7.9(H) 2.4 - 5.7 mg/dL [facility] Blood Venous blood specimen / Unknown 06/16/2024 8:52 AM EST 06/16/2024 2:18 PM EST Arnulfo Bates MD LAB BLOOD ORDERABL ES Final Result Performing Organization Address [facility] de Phone Number [facility] [address] [place] [phone] * Hemoglobin A1c (06/16/2024 8:52 AM EST) Hemoglobin A1c 5.8 <6.0 % [facility] Comment:Hemoglobin A1C Refer ence Range Adults: 4.8 - 6.0 % Non diabetic: < 6.0 % Goal: < 7.0 %Additional Action Suggested: > 8.0 %Note: Hemoglobin A1c results are invalid for patients with abnormal amounts of HbF. Blood transfusions may impact the HbA1c concentration in the patient sample. Estimated Average Glucose 120 mg/dL [facility] Comment:eAG = Estimated ave rage glucose which is %A1C expressed asaverage glucose, using the formula of the V5H-GrrceuvDqujdcq Glucose study (ADAG), Diabetes Care, Vol.31,#8,2007 Blood Venous blood specimen / Unknown 06/16/2024 8:52 AM EST 06/16/2024 2:14 PM EST Arnulfo Bates MD LAB BLOOD ORDERABL ES Final Result Performing Organization Address [facility] Co de Phone Number [facility] [address] [place] [phone] * (ABNORMAL) Lipid Panel, Standard (06/16/2024 8:52 AM EST) Triglycerides 161(H) <150 mg/dL [facility] Comment:Desirable Triglyceri de: less than 150 mg/dLBorderline High Triglyceride 150-199 mg/dLHigh Triglyceride: 200-499 mg/dLVery High Triglyceride: greater than or equal to 5OO mg/dL Cholesterol 158 <200 mg/dL [facility] Comment:Desirable Cholestero l: less than 200 mg/dLBorderline High Cholesterol: 200-239 mg/dLHigh Cholesterol: greater than 239 mg/dL LDL Cholesterol Calculated 84 <100 mg/dL [facility] Comment:Desirable LDL: less than 100 mg/dLNear Optimal/Above Optimal LDL: 110- 129 mg/dLBorderline High LDL: 130-159 mg/dLHigh LDL: 160-189 mg/dLVery High LDL: greater than or equal to 190 mg/dL HDL Cholesterol 42 >40 mg/dL [facility] Comment:Desirable HDL: great er than 40 mg/dL Note: This HDL assay may give artificially low results in patients with liver disease. Blood Venous blood specimen / Unknown 06/16/2024 8:52 AM EST 06/16/2024 2:18 PM EST Arnulfo Bates MD LAB BLOOD ORDERABL ES Final Result Performing Organization Address [facility] Co de Phone Number [facility] [address] [place] [phone] * (ABNORMAL) Comprehensive Metabolic Panel (06/16/2024 8:52 AM EST) Sodium 141 135 - 145 mmol/L [facility] Potassium 3.7 3.3 - 5.1 mmol/L [facility] Chloride 105 96 - 108 mmol/L [facility] Carbon Dioxide 28 22 - 29 mmol/L [facility] Anion Gap 12 12 - 20 [facility] Urea Nitrogen (BUN) 19(H) 9 - 16 mg/dL [facility] Creatinine, Serum 0.91 0.5 - 1.4 mg/dL [facility] Estimated Glomerular Filt Rate >60 [facility] [facility] Comment:Chronic Kidney Disea se: Estimated GFR < 60 mL/min/1.72c7Cemali Kidney Disease: Estimated GFR < 15 mL/min/1.73m2 Glucose 82 60 - 115 mg/dL [facility] Calcium 9.4 8.4 - 10.2 mg/dL [facility] Bilirubin, Total 0.3 0.0 - 1.0 mg/dL [facility] Aspartate Amino Transferase 32(H) 5 - 31 U/L [facility] Alanine Aminotransferase 30 0 - 31 U/L [facility] Total Protein 6.8 6.5 - 8.0 g/dL [facility] Albumin Level 4.0 3.5 - 5.0 g/dL [facility] Alkaline Phosphatase 76 39 - 117 U/L [facility] Blood Venous blood specimen / Unknown 06/16/2024 8:52 AM EST 06/16/2024 2:18 PM EST us Arnulfo Bates MD LAB BLOOD ORDERABL ES Final Result [facility] [address] [place] [address] [phone] * Culture, Urine, Routine (06/16/2024 12:00 AM EST) Urine Urine specimen obtained by clean catch procedure / Unknown 06/16/2024 06/16/2024 Comment:UACC Narrative [facility] - 06/18/2024 8:57 AM EST Urine Culture No growth. Specimen Source: Urine clean catch Arnulfo Bates MD LAB MICROBIOLOGY - GENERAL ORDERABLES Final Result [facility] [address] [place] [address] [phone] from Last 3 Months Insurance [facility] ST[facility] DUAL COMPLETE Care Teams Potato Loader Relationship Specialty Start Date End Date Arnulfo Maria MD [address] [place] [address] PCP - General Internal Medicine 06/15/24
--- OUTSIDE RECORDS SUMMARY | 2024-09-06 12:33 | XMS_ITS ---
Author Organization [facility] Address [address] [facility] [address] [place] [address] Care Team Providers Care Ornamental Brick Installer Name Role Phone Isidro Zayas Primary Care Provider Tracey Bhatti MD, Burak [facility] [phone] REASON FOR VISIT Consult for Personal history of colonic polyps Social History Sex Assigned At : Social History Observation Description Sex Assigned At Female Encounters Encounter Location Date Provider Diagnosis [facility] [address] [facility] [address] [place] [address] 02/07/2024 Burak Bhatti Plan Of Treatment No Information Progress Notes * NIA PUGA ADOB: (64 yo F)Acc No.[id number]:02/07/2024 Progress Notes Patient:?NIA PUGA Provider:?Burak Bhatti MD :1960???Age:63 Y???Sex:Female D ate:02/07/2024 Address:[address] [place], [place] [id number] Pcp:Isidro Zayas Subjective: * Chief Complaints: * ???1. Consult for Personal h istory of colonic polyps. * Medical History:? Objective: * Vitals:? Assessment: Plan: * Treatment: * Billing Information: * Visit Code:? * Procedure Codes:? * Electronic signature of Burak Bhatti MD, MD on 09/06/2024 at 12:33 PM EST Sign off status: Pending * Provider:?Burak Bhatti MD Date:?02/07/2024 Generated for Rosiei faviola/Nghia/eTransmitting on:?09/06/2024 12:33 PM EST
--- OUTSIDE RECORDS SUMMARY | 2024-09-06 12:33 | XMS_ITS ---
Author Organization [facility] Address [address] [place] [address] Care Team Providers Care Soda Jerker Name Role Phone Isidro Zayas Primary Care Provider rTacey Bhatti MD, Burak Unavailable [phone] REASON FOR VISIT REFERRAL RECEIVED Social History Sex Assigned At : Social History Observation Description Sex Assigned At Female Encounters Encounter Location Date Provider Diagnosis [facility] [address] [place] [address] 01/21/2024 Burak Bhatti Plan Of Treatment No Information Progress Notes * NIA PUGA ADOB: (63 yo F)Acc No.[id number]:01/21/2024 Patient:?NIA UPGA :1960???Age:63 Y???Sex:Female Address:[address] [place] [address], [address] * true * Date:? Generated for Rosiei faviola/Nghia/eTransmitting on:?09/06/2024 12:32 PM EST
--- OUTSIDE RECORDS SUMMARY | 2024-09-06 12:33 | XMS_ITS | Patient Health Record ---
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 Referred Organization [facility] Referred Provider Burak Bhatti Referred Address [address], [place],[address], Referral Priority Routine Social History Sex Assigned At : Social History Observation Description Sex Assigned At Female Encounters Encounter Location Date Provider Diagnosis [facility] [address] [place] [address] 01/20/2024 Burak Bhatti [facility] [address] [place] [address] 01/21/2024 Burak Bhatti [facility] [address] [place] [address] 01/26/2024 Burak Bhatti Plan Of Treatment No Information Insurance Providers Payer Name Payer Address Payer Phone Subscriber Number Group Number Insured Name Patient Relationship to Insured Coverage Start Date Coverage End Date [facility] DUAL COMPLETE [address] [address] [place] [address] [id number] NIA PUGA Self - patient is the insured 4 4
--- OUTSIDE RECORDS SUMMARY | 2024-09-06 12:33 | XMS_ITS | Encounter Summary ---
Author Organization [employer] Address [address] [facility] [address] [place] [address] Care Team Providers Care Jute Bag Clipper Name Role Phone Arnulfo Maria MD Primary Care Prov ider Reason for Visit * Reason Comments Med Refill Encounter Details Date Type Department Care Team ([facility] Contact Info) Description 06/16/2024 Refill [facility] [address] [place] [address] Arnulfo Maria MD [address] [place] [address] Social History Tobacco Use Types Packs/Day Years [...] documented as of this encounter Care Teams Jute Bag Clipper Relationship Specialty Start Date End Date Arnulfo Maria MD [address] [place] [address] PCP - General Internal Medicine 06/15/24 documented as of this encounter
--- OUTSIDE RECORDS SUMMARY | 2024-09-06 12:33 | XMS_ITS | Encounter Summary ---
Author Organization [employer] Address [address] [facility] [address] [place] [address] Care Team Providers Care Machine Setter Name Role Phone Arnulfo Maria MD Primary Care Prov ider Reason for Visit * Reason Comments Med Refill Encounter Details Date Type Department Care Team ([facility] Contact Info) Description 08/06/2024 Refill [facility] PEDS [address] [place] [address] Sandeep Ren MD [address] [place], [place] [phone] Social History Tobacco Use Types Packs/Day Years [...] documented as of this encounter Care Teams Machine Setter Relationship Specialty Start Date End Date Arnulfo Maria MD [address] [place] [address] PCP - General Internal Medicine 06/15/24 documented as of this encounter
--- OUTSIDE RECORDS SUMMARY | 2024-09-06 12:34 | XMS_ITS | Encounter Summary ---
Author Organization [employer] Address [address] [facility] [address] [place] [address] Care Team Providers Care Technical Education Teacher Name Role Phone Arnulfo Maria MD Primary Care Prov ider Encounter Details Date Type Department Care Team ([facility] st Contact Info) Description 08/07/2024 1:45 PM EST Office Visit [facility] & PEDS [address] [place] [address] Arnulfo Maria MD [address] [place], [place] [phone] Pre-op evaluation (Primary Dx) Social History Tobacco Use Types Packs/Day Years [...] 16 08/07/2024 1:36 PM EST Oxygen Saturation - - Inhaled Oxygen Concentration - - Weight 74.8 kg (165 lb) 08/07/2024 1:36 PM EST Height 160 cm (5' 3 ) 08/07/2024 1:36 PM EST Body Mass Index 29.23 08/07/2024 1:36 PM EST documented in this encounter Progress Notes * Arnulfo Bates MD - 08/07/2024 1:45 PM EST Subjective Patient ID: Ashley Prakash is a 64 y.o. female who presents for No chief complaint on file.. HPI Patient was scheduled for a office visit for a pre op evaluation Review of Systems Constitutional: Negative for chills, fatigue and fever. Respiratory: Negative for cough, choking and shortness of breath. Cardiovascular: Negative for chest pain, palpitations and leg swelling. Gastrointestinal: Negative for abdominal distention and abdominal pain. Objective Physical Exam Constitutional: Appearance: Normal appearance. HENT: Right Ear: Tympanic membrane, ear canal and external ear normal. There is no impacted cerumen. Left Ear: Tympanic membrane, ear canal and external ear normal. There is no impacted cerumen. Cardiovascular: Rate and Rhythm: Normal rate and regular rhythm. Heart sounds: No murmur heard. Pulmonary: Effort: Pulmonary effort is normal. No respiratory distress. Breath sounds: No stridor. No wheezing or rhonchi. Abdominal: General: Abdomen is flat. There is no distension. Palpations: There is no mass. Tenderness: There is no abdominal tenderness. Hernia: No hernia is present. Musculoskeletal: General: Normal range of motion. Cervical back: Normal range of motion. No rigidity or tenderness. Lymphadenopathy: Cervical: No cervical adenopathy. Neurological: General: No focal deficit present. Mental Status: She is alert and oriented to person, place, and time. Psychiatric: Mood and Affect: Mood normal. Behavior: Behavior normal. Assessment/Plan Problem List Items Addressed This Visit Pre-op evaluation - Primary Patient will undergo a cataract surgery. She denied chest pain or shortness of breath. Procedure islow risk, told to avoid asa/nsaids 5 days prior procedure, take blood pressure medication as indicated. She is cleared for procedure documented in this encounter Miscellaneous Notes * Assessment & Plan Note - Arnulfo Bates MD - 08/08/2024 11:36 PM ESTAssociated Problem(s): Pre-op evaluation Patient will undergo a cataract surgery. She denied chest pain or shortness of breath. Procedure islow risk, told to avoid asa/nsaids 5 days prior procedure, take blood pressure medication as indicated. She is cleared for procedure documented in this encounter Plan of Treatment Not on file documented as of this encounter Visit Diagnoses Diagnosis Pre-op evaluation- Primary documented in this encounter Additional Health Concerns Assessment Noted Time PHQ-9 Depression Total Score: 4 06/15/20 24 1:33 PM EST documented as of this encounter Care Teams Technical Education Teacher Relationship Specialty Start Date End Date Arnulfo Maria MD [address] [place] [address] PCP - General Internal Medicine 06/15/24 documented as of this encounter
== END 2024-09-06 10:36 | disposition home or self-care (01) ==
LOC: HO.MAMMO 10:35
PROVIDERS: PCP Internal Medicine; Visit Provider Internal Medicine
DX: N64.89 Other specified disorders of breast (principal)
CPT/HCPCS: 76642; 77062; 77066

== ENCOUNTER → 2024-09-06 11:30 | Outpatient (BNV) | payer MEDICARE, SELFPAY | PROVIDERS: PCP Internal Medicine; Visit Provider Internal Medicine | DX: R92.8 Other abnormal and inconclusive findings on diagnostic imaging of breast (principal) | CPT/HCPCS: 76642; 77066; G0279 ==

== ENCOUNTER 2024-10-25 10:04 | Outpatient (AMB) | payer MEDICARE, SELFPAY ==
--- NOTE | 2024-10-25 10:15 | A.OFFVIS_ITS ---
Vital Signs 3 10/25/24 10:44 Height 5 ft 2 in Weight 168 lb BMI 30.7 BP 119/59 L Blood Pressure Location Lt brachial Position Sitting Pulse 70 Pulse Oximetry (%) 94 Oxygen Delivery Method Room Air Intake Visit Reasons: colonoscopy screening Intake Note: Patient new consult for pre colonoscopy screening Patient cc: acid reflux and constipation. Denies any other GI issues. Railroad Car Cleaning Supervisor Required: Yes Railroad Car Cleaning Supervisor Name: C Interpeter Accompanied by: Spouse Allergies Penicillins Allergy (Verified 10/25/24 10:14) Unknown HPI HPI colonoscopy screening: Details: 64-year-old female here for preprocedural meeting to discuss a screening colonoscopy. She is referred by Dr. Key PMX ASTHMA HYPERTENSION HIGH CHOLESTEROL Generalized osteoarthritis Obesity Diabetes - pt denies GERD insomnia - francine and seroquel * SURGICAL HISTORY Hysterectomy Appendectomy Bladder sling partial colectomy r/t polyp tubal ligation * ALLERGIES Penicillin - uncertain * Petrabytes LABS: Laboratory Tests 06/16/24 08:52 WBC 6.1 Hgb 11.8 L Hct 37.7 MCV 88.5 MCH 27.7 Plt Count 343 D Estimated GFR > 60 Total Bilirubin 0.3 AST 32 H ALT 30 Alkaline Phosphatase 76 TSH 2.49 TODAY'S VISIT Khmer #Tammy Live She is concerned to have an EGD as well because she suffers GERD and her younger brother of stomach cancer. Her Nexium generally controls her HB well. She also reports having a very large polyp removed somewhere in [place]. There are no prior problems with anesthesia or sedation. She denies any cardiac problems, she has asthma that is well controlled. No ID problems. She had a large prior polyp with small colectomy and her sister had polyps and her brother had stomach cancer. [facility] Medical History (Updated 10/25/24 @ 11:28 by TYLER Salmeron) History of appendicitis Surgical History (Updated 10/25/24 @ 11:28 by TYLER Salmeron) History of hysterectomy History of partial colectomy Hx of cystostomy Hx of tubal ligation Hx of esophagogastroduodenoscopy Hx of colonoscopy Social History (Updated 10/25/24 @ 10:57 by Ashley Draper) Household Members: Spouse Alcohol intake: never Patient Tobacco Use Status: Never used Tobacco Use of substances other than those prescribed or required for medical reasons: No Review of Systems Const Denies fatigue, Denies fever(s), Denies night sweats, Denies poor appetite and Denies weight loss ENT Reports Normal hearing present, Reports dysphagia, Denies odynophagia, Denies throat swelling and Denies tongue swelling Card Reports no additional complaints Resp Reports no additional complaints GI Details: Denies abdominal pain, Denies melena, Denies bloating, Denies hematochezia, Denies constipation, Denies GI cramping, Reports dysphagia, Denies excessive flatus, Denies early satiety, Reports heartburn, Denies diarrhea, Denies nausea, Denies odynophagia, Denies vomiting and Denies hematemesis Skin/Breast Denies pruritus, Denies lesions, Denies rash and Denies jaundice Neuro Reports Normal hearing present and Denies Abnormal speech present Endo Denies fatigue Aller/Immun Denies throat swelling and Denies tongue swelling Physical Exam Vital Signs: Last Vital Signs Pulse 70 10/25/24 10:44 BP 119/59 L 10/25/24 10:44 Pulse Ox 94 10/25/24 10:44 Oxygen Delivery Method Room Air 10/25/24 10:44 BMI result Body Mass Index 30.7 Const General: cooperative, no acute distress, well developed and well groomed Nutritional Appearance: well nourished and obese Orientation/consciousness: oriented to person, oriented to place and oriented to time Limitations: language barrier HEENT Head: Yes normocephalic and Yes atraumatic Eyes General: appearance normal, both eyes and all related structures Pupils: Equal, round and reactive pupils present Neck Neck: Yes normal visual inspection and Yes no lymphadenopathy Thyroid: Thyroid normal Resp Effort & Inspection: normal respiratory effort and able to speak in complete sentences Auscultation: clear to auscultation bilaterally Cardio Rate: regular rate Rhythm: regular rhythm Heart sounds: Normal, physiologic split S2 sound present Peripheral pulses: radial pulses present and posterior tibial pulses present GI Inspection: No distended, Yes Abdominal panniculus present, Yes obesity and Yes scar Palpation (GI): Soft to palpation, nontender, no guarding, not rigid and No hepatosplenomegaly present Percussion: Yes normal to percussion Auscultation: normal bowel sounds Rectal Exam - Female: deferred Abdomen image: 2 1. surgical scar Skin General skin exam: no rashes or lesions noted, turgor normal, skin not dry, no jaundice, No spider nevi and no striae Rashes: no rashes Nails: normal Neuro General: oriented to person, oriented to place and oriented to time Cranial nerves: Yes Equal, round and reactive pupils present and Yes Normal hearing present Speech: No Abnormal speech present Extrem General: Yes normal to inspection, No clubbing, No cyanosis and No edema Psych Appearance: grossly normal and well kempt Mental Status: mental status grossly normal Speech and movement: Normal speech and movement present Affect: normal affect Attitude: cooperative Thought process: Normal thought process present and not confabulating Thought content: Normal thought content present Insight: Limited insight present (Psych) Judgement: Limited judgement present (Psych) Results Reviewed Results Reviewed: Laboratory Tests 06/16/24 08:52 WBC 6.1 Hgb 11.8 L Hct 37.7 MCV 88.5 MCH 27.7 Plt Count 343 D Estimated GFR > 60 Total Bilirubin 0.3 AST 32 H ALT 30 Alkaline Phosphatase 76 TSH 2.49 Assessment & Plan Assessment & Plan (1) Pre-op examination: Code(s): Z01.818 - Encounter for other preprocedural examination Category: Medical (2) GERD (gastroesophageal reflux disease): Code(s): K21.9 - Gastro-esophageal reflux disease without esophagitis Category: Medical (3) Odynophagia: Code(s): R13.10 - Dysphagia, unspecified Category: Medical (4) Family history of stomach cancer: Code(s): Z80.0 - Family history of malignant neoplasm of digestive organs Category: Medical (5) Tubular adenoma of colon: Code(s): D12.6 - Benign neoplasm of colon, unspecified Category: Medical (6) Asthma: Code(s): J45.909 - Unspecified asthma, uncomplicated Category: Medical (7) Insomnia: Code(s): G47.00 - Insomnia, unspecified Category: Medical Plan Khmer #Tammy Live She is concerned to have an EGD as well because she suffers GERD and her younger brother of stomach cancer. Her Nexium generally controls her HB well. She also reports having a very large polyp removed [place]. There are no prior problems with anesthesia or sedation. She denies any cardiac problems, she has asthma that is well controlled. No ID problems. She had a large prior polyp with small colectomy and her sister had polyps and her brother had stomach cancer. Orders: Orders 2 [place] barium swallow Today K21.9 - Gastro-esophageal reflux disease without esophagitis, R13.10 - Dysphagia, unspecified, Z80.0 - Family history of malignant neoplasm of digestive organs H pylori Ag Stool Today K21.9 - Gastro-esophageal reflux disease without esophagitis, R13.10 - Dysphagia, unspecified, Z80.0 - Family history of malignant neoplasm of digestive organs EGD/Lawrence Combo - GI Use Only Today K21.9 - Gastro-esophageal reflux disease without esophagitis, R13.10 - Dysphagia, unspecified, Z80.0 - Family history of malignant neoplasm of digestive organs Medications: New 2 sod sulf-pot chloride-mag sulf 1.479-0.188- 0.225 gram (Sutab) PO PER PKG DIR for colonoscopy prep 24 tabs 0RF Coding Level of Care Code Est Pt Level 4 (40164) Diagnoses Pre-op examination Z01.818 GERD (gastroesophageal reflux disease) K21.9 Odynophagia R13.10 Family history of stomach cancer Z80.0 Tubular adenoma of colon D12.6 Asthma J45.909 Insomnia G47.00 Time Spent (min) 40
[2024-10-25 10:44] VITALS: BP 119/59; PULSE 70; O2SAT 94; BMI 30.7
--- OUTSIDE RECORDS SUMMARY | 2024-10-25 11:38 | XMS_ITS | Patient Health Record ---
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 Referred Organization [facility] Referred Provider Burak Bhatti Referred Address [address], [place],[address], Referral Priority Routine Social History Sex Assigned At : Social History Observation Description Sex Assigned At Female Encounters Encounter Location Date Provider Diagnosis [facility] [address] [place] [address] 01/20/2024 Burak Bhatti [facility] [address] [place] [address] 01/21/2024 Burak Bhatit [facility] [address] [place] [address] 01/26/2024 Burak Bhatti Plan Of Treatment No Information Insurance Providers Payer Name Payer Address Payer Phone Subscriber Number Group Number Insured Name Patient Relationship to Insured Coverage Start Date Coverage End Date [facility] DUAL COMPLETE [address] [address] [place] [address] [id number] NIA PUGA Self - patient is the insured 4 4
--- OUTSIDE RECORDS SUMMARY | 2024-10-25 11:38 | XMS_ITS | Clinical Summary ---
Author Organization [employer] Address [address] [facility] 7t [place] [address] Care Team Providers Care Day Care Assistant Name Role Phone Arnulfo Maria MD Primary Care Prov ider Allergies Active Allergy Reactions Criticality Noted Date Comments Penicillin G Rash Low 06/15/2024 Medications losartan-hydro CHLOROthiazide (Hyzaar) 100-25 MG tablet Take [...] 30 tablet 11 5 07/26/19 26 Active atorvastatin (Lipitor) 40 MG tablet Take 1 tablet (40 mg) by mouth Once per day. 30 tablet 11 5 07/26/19 26 Active montelukast (Singulair) 10 MG tablet TAKE 1 TABLET(10 MG) BY MOUTH DAILY 30 tablet 2 5 Active gabapentin (Neurontin) 300 MG capsule TAKE 1 CAPSULE(300 MG) BY MOUTH THREE TIMES DAILY 90 capsule 2 5 Active QUEtiapine (SEROquel) 50 MG tablet TAKE 1 TABLET(50 MG) BY MOUTH AT BEDTIME 30 tablet 5 Active QUEtiapine (SEROquel) 50 MG tablet TAKE 1 TABLET(50 MG) BY MOUTH AT BEDTIME 30 tablet 5 10/05/19 25 Discontinued Active Problems Problem Noted Date [...] visit on the past year: May on [facility] due to flu and asthma exacerbation [...] Plan (06/15/2024 1:32 PM EST): Done on [place] on July 2023,, will place new order Screening for colon cancer 06/15/2024 Assessment & Plan (06/15/2024 1:32 PM EST): Will refer for screening colon cancer Encounters Date Type Department Care Team Description 10/03/2024 Refill [facility] [address] [place] [address] Arnulfo Maria MD 09/06/2024 Orders Only [facility] [address] [place] [address] Arnulfo Maria MD 09/05/2024 Refill [facility] [address] [place] [address] Arnulfo Maria MD 08/12/2024 Refill [facility] [address] [place] [address] Arnulfo Maria MD 08/07/2024 1:45 PM EST Office Visit [facility] [address] [place] [address] Arnulfo Maria MD Pre-op evaluation (Primary Dx) 08/07/2024 Travel 08/06/2024 Refill [facility] [address] [place] [address] Sandeep Ren MD from Last 3 Months Family History Medical History Relation Name Comments Stomach cancer Brother Asthma Father Osteoarthritis Father Asthma Mother Heart disease Mother Osteoarthritis Mother Relation Name Status Comments Brother Father Mother Social History Tobacco Use Types Packs/Day Years Used Date Smoking Tobacco: Former Cigarettes 0.3 21 S tarted: 1982 Smokeless Tobacco: Never Tobacco Cessation:Counseling Given: Not [...] Vaccines (1 of 2) 02/15/2008 COVID-19 Vaccine (1 - 2023-2 5 season) 2024 Influenza Vaccine (#1) 2024 Diabetes: Hemoglobin A1C 12/15/2024 06/16/2024 SDOH Screening 06/05/2025 06/05/2024 Depression Screening 06/15/2025 06/15/2024, 06/15/2024 Tobacco Screening 06/15/2025 06/15/2024 Lipid Panel 06/16/2025 06/16/2024 Mammogram 09/06/2026 09/06/2024, 07/31/2024 RSV Patients and Patients Aged 60 years [...] screening mammogram for malignant neoplasm of breast HEPATITIS C AB W/REFL TO HCV RNA, QN, PCR Routine 06/16/2024 8:52 AM EST Primary hypertension HEMOGLOBIN A1C Routine 06/16/2024 8:52 AM EST Primary hypertension LIPID PANEL, STANDARD Routine 06/16/2024 8:52 AM EST Primary hypertension from Last 3 Months or Most Recently Relevant to Health Maintenance Results * BI US Breast Limited Bilateral (09/06/2024 11:30 AM EST) Anatomical Region Laterality Modality Breast Bilateral Ultrasound 09/06/2024 11:3 0 AM EST Narrative 09/06/2024 11:49 AM EST ? [facility] ? [address] ?[place] [address] ? Ultrasound Report ? Signed ? Patient: Chuck Prakash,Ashley Burroughs ?MR#: MM ?? [id number] ? : 1960 ?Acct:[id number] ? Age/Sex: 64 / F ?ADM Date: 09/06/24 ? Loc: HO.MAMMO ? Attending Dr: Arnulfo Bates MD ? Ordering Physician: Arnulfo Maria MD ?? Date of Service: 09/06/24 ?? Procedure(s): US breast BI limited mamm only ?? Accession Number(s): [id number] ? cc: Arnulfo Maria MD ? EXAMINATION: [...] DD/ 1130 ? TD/TT: 09/06/24 1143 ? Dental Treatment Coordinator: ? Procedure Note Donotsalvatoreinterpreter, Image - 09/06/2024 [facility] [address] [place] [address] Ultrasound Report Signed Patient: Ashley Faulkner AMR#: [id number] : 8Acct:[id number] Age/Sex: 64 / FADM Date: 09/06/24 Loc: HO.MAMMO Attending Dr: Arnulfo Bates MD Ordering Physician: Arnulfo Maria MD Date of Service: 09/06/24 Procedure(s): US breast BI limited mamm only Accession Number(s): [id number] cc: Arnulfo Maria MD EXAMINATION: MM DIAGNOSTIC [...] 09/06/24 1147 DD/ 1130 TD/TT: 09/06/24 1143 Dental Treatment Coordinator: us Arnulfo Bates MD Julia PROCEDURES Edited Result - Final * BI Mammogram Diagnostic Tomosynthesis added bilateral (09/06/2024 11:00 AM EST) Anatomical Region Laterality Modality Breast Left Mammography 09/06/2024 11:0 0 AM EST Narrative 09/06/2024 11:49 AM EST ? [facility] [place] ? [address] [facility] ?[place] [address] ? Mammography Report ? Signed ? Patient: Ashley Faulkner A ?MR#: MM ?? [id number] ? : 1960 ?Acct:[id number] ? Age/Sex: 64 / F ?ADM Date: 03/05/25 ? Loc: HO.MAMMO ? Attending Dr: Arnulfo Bates MD ? Ordering Physician: Arnulfo Maria MD ?Res ?? ults: 2Benign Findings ? Date of Service: 09/06/24 ?Follow Up: 1 Year From Orig ?? inal Mammogram ? Procedure(s): MM tomosynthesis added view BI ?? Accession Number(s): [id number] ? cc: Arnulfo Maria MD ? EXAMINATION: [...] DD/ 1100 ? TD/TT: 09/06/24 1115 ? Dental Treatment Coordinator: ? Procedure Note Donotsalvatoreinterpreter, Image - 09/06/2024 [facility] [address] [place] [address] Mammography Report Signed Patient: Ashley Faulkner AMR#: [id number] : 8Acct:[id number] Age/Sex: 64 / FADM Date: 09/06/24 Loc: HO.MAMMO Attending Dr: Arnulfo Bates MD Ordering Physician: Arnulfo Maria ults: 2Benign Findings Date of Service: 09/06/24Follow Up: 1 Year From Orig [facility] Mammogram Procedure(s): MM tomosynthesis added view BI Accession Number(s): [id number] cc: Arnulfo Maria MD EXAMINATION: MM DIAGNOSTIC [...] 09/06/24 1147 DD/ 1100 TD/TT: 09/06/24 1115 Dental Treatment Coordinator: Arnulfo Bates MD IMG BI PROCEDURES Edited Result - Final * BI Mammogram Screening Tomosynthesis Bilateral (07/31/2024 9:45 AM EST) Anatomical Region Laterality Modality Breast Bilateral Mammography 07/31/2024 9:45 AM EST Narrative 08/08/2024 3:42 PM EST ? [facility] [place] ? [address] ?[place] [address] ? Mammography Report ? Signed ? Patient: Ashley Faulkner ?MR#: MM ?? [id number] ? : 1960 ?Acct:[id number] ? Age/Sex: 64 / F ?ADM Date: /27/25 ? Loc: HO.MAMMO ? Attending Dr: Arnulfo Bates MD ? Ordering Physician: Arnulfo Maria MD ? Results: 0Incomplete: Needs Additional Imaging ?? Evaluation ? Date of Service: 07/31/24 ?Follow Up: Additional Imagi ?? ng ? Procedure(s): MM tomosynthesis screening BI ?? Accession Number(s): [id number] ? cc: Arnulfo Maria MD ? EXAMINATION: [...] ??Ernestina Pitts DO ??08/08/2024 03:39 PM EST ? Dictated By: ?Ernestina Pitts DO ? Signed By: ?<Electronically signed by Ernestina Pitts, DO in OV> ? 08/08/24 1539 ? DD/ 4 ? TD/TT: 07/31/24 1000 ? Dental Treatment Coordinator: ? Procedure Note Dontesfayeter, Image - 08/08/2024 [place] [facility] [address] [place], [place] [address] Mammography Report Signed Patient: Ashley Faulkner AMR#: [id number] : 8Acct:[id number] Age/Sex: 64 / FADM Date: 07/31/24 Loc: HO.MAMMO Attending Dr: Arnulfo Bates MD Ordering Physician: Arnulfo Maria MD Results: 0Incomplete: Needs Additional Imaging Evaluation Date of Service: 07/31/24Follow Up: Additional Imagi ng Procedure(s): MM tomosynthesis screening BI Accession Number(s): [id number] cc: Arnulfo Maria MD EXAMINATION: MM SCREENING [...] 08/08/24 1539 DD/ 0945 TD/TT: 07/31/24 1000 Dental Treatment Coordinator: Arnulfo Bates MD IMG BI PROCEDURES Final Result * Hepatitis C Antibody with Reflex to HCV, RNA, Quantitative, Real-Time PCR (06/16/2024 8:52 AM EST) Hepatitis C Antibody Nonreactive Nonreactive [facility] Comment:Antibodies to HCV no t detected; does not exclude early acuteHCV infection. Blood Venous blood specimen / Unknown 06/16/2024 8:52 AM EST 06/16/2024 2:18 PM EST Arnulfo Bates MD LAB BLOOD ORDERABL ES Final Result [facility] [address] [place] [phone] * Hemoglobin A1c (06/16/2024 8:52 AM EST) Hemoglobin A1c 5.8 <6.0 % [facility] Comment:Hemoglobin A1C Refer ence Range Adults: 4.8 - 6.0 % Non diabetic: < 6.0 % Goal: < 7.0 %Additional Action Suggested: > 8.0 %Note: Hemoglobin A1c results are invalid for patients with abnormal amounts of HbF. Blood transfusions may impact the HbA1c concentration in the patient sample. Estimated Average Glucose 120 mg/dL [facility] Comment:eAG = Estimated ave rage glucose which is %A1C expressed asaverage glucose, using the formula of the J5O-WjlncmxMpxcfhm Glucose study (ADAG), Diabetes Care, Vol.31,#8,2007 Blood Venous blood specimen / Unknown 06/16/2024 8:52 AM EST 06/16/2024 2:14 PM EST Arnulfo Bates MD LAB BLOOD ORDERABL ES Final Result Performing Organization Address [facility] Co de Phone Number [facility] [address] [place] [phone] * (ABNORMAL) Lipid Panel, Standard (06/16/2024 8:52 AM EST) Triglycerides 161(H) <150 mg/dL [facility] Comment:Desirable Triglyceri de: less than 150 mg/dLBorderline High Triglyceride 150-199 mg/dLHigh Triglyceride: 200-499 mg/dLVery High Triglyceride: greater than or equal to 5OO mg/dL Cholesterol 158 <200 mg/dL [facility] Comment:Desirable Cholestero l: less than 200 mg/dLBorderline High Cholesterol: 200-239 mg/dLHigh Cholesterol: greater than 239 mg/dL LDL Cholesterol Calculated 84 <100 mg/dL [facility] Comment:Desirable LDL: less than 100 mg/dLNear Optimal/Above Optimal LDL: 110- 129 mg/dLBorderline High LDL: 130-159 mg/dLHigh LDL: 160-189 mg/dLVery High LDL: greater than or equal to 190 mg/dL HDL Cholesterol 42 >40 mg/dL [facility] Comment:Desirable HDL: great er than 40 mg/dL Note: This HDL assay may give artificially low results in patients with liver disease. Blood Venous blood specimen / Unknown 06/16/2024 8:52 AM EST 06/16/2024 2:18 PM EST Arnulfo Bates MD LAB BLOOD ORDERABL ES Final Result Performing Organization Address [facility] Co de Phone Number [facility] [address] [place] [phone] from Last 3 Months or Most Recently Relevant to Health Maintenance Insurance [employer] STANDARD [facility] Care Teams Day Care Assistant Relationship Specialty Start Date End Date Arnulfo Maria MD [address] [place] [phone] PCP - General Internal Medicine 06/15/24
--- OUTSIDE RECORDS SUMMARY | 2024-10-25 11:38 | XMS_ITS | Encounter Summary ---
Author Organization [employer] Address [address] [facility] 7t [place] [address] Care Team Providers Care Acid Painter Name Role Phone Arnulfo Maria MD Primary Care Prov ider Reason for Visit * Reason Comments Med Refill Encounter Details Date Type Department Care Team ([facility] Contact Info) Description 06/16/2024 Refill [facility] [address] [place] [address] Arnulfo Maria MD [address] [place], [place] [phone] Social History Tobacco Use Types Packs/Day Years [...] documented as of this encounter Care Teams Acid Painter Relationship Specialty Start Date End Date Arnulfo Maria MD [address] [place] [phone] PCP - General Internal Medicine 06/15/24 documented as of this encounter
--- OUTSIDE RECORDS SUMMARY | 2024-10-25 11:38 | XMS_ITS ---
Author Organization [facility] Address [address] [place] [address] Care Team Providers Care Ceramic Tiler Name Role Phone Isidro Zayas Primary Care Provider Tracey Bhatti MD, Burak Unavailable [phone] REASON FOR VISIT REFERRAL RECEIVED Social History Sex Assigned At : Social History Observation Description Sex Assigned At Female Encounters Encounter Location Date Provider Diagnosis [facility] [address] [place] [address] 01/21/2024 Burak Bhatti Plan Of Treatment No Information Progress Notes * NIA PUGA ADOB: (63 yo F)Acc No.[id number]:01/21/2024 Patient:?NIA PUGA :1960???Age:63 Y???Sex:Female Address:[address] [place] [address], [phone] * true * Date:? Generated for Printi ng/Faleong/eTransmitting on:?10/25/2024 11:38 AM EDT
--- OUTSIDE RECORDS SUMMARY | 2024-10-25 11:38 | XMS_ITS | Encounter Summary ---
Author Organization [employer] Address [address] [facility] [address] [place] [address] Care Team Providers Care Reaming Machine Tender Name Role Phone Arnulfo Maria MD Primary Care Prov ider Reason for Visit * Reason Onset Date Comments new patient visit 05/08/2024 Encounter Details Date Type Department Care Team ([facility] st Contact Info) Description 05/08/2024 Telephone [facility] [address] [place] [address] Arnulfo Maria MD [address] [place], [place] [phone] new patient visit Social History Tobacco Use [...] on filedocumented in this encounter Care Teams Reaming Machine Tender Relationship Specialty Start Date End Date Arnulfo Maria MD [address] [place] [phone] PCP - General Internal Medicine 06/15/24 documented as of this encounter
--- OUTSIDE RECORDS SUMMARY | 2024-10-25 11:38 | XMS_ITS ---
Author Organization [facility] Address [address] [place] [address] Care Team Providers Care Buttonhole Maker Hand Name Role Phone Isidro Zayas Primary Care Provider Tracey Bhatti MD, Burak Unavailable [phone] REASON FOR VISIT INS KEN Social History Sex Assigned At : Social History Observation Description Sex Assigned At Female Encounters Encounter Location Date Provider Diagnosis [facility] [address] [place] [address] 01/26/2024 Burak Bhatti Plan Of Treatment No Information Progress Notes * NIA PUGA ADOB: (63 yo F)Acc No.[id number]:01/26/2024 Patient:?NIA PUGA :1960???Age:63 Y???Sex:Female Address:[address] [place] [address], [phone] * true * Date:? Generated for Printi ng/Faleong/eTransmitting on:?10/25/2024 11:38 AM EDT
--- OUTSIDE RECORDS SUMMARY | 2024-10-25 11:38 | XMS_ITS ---
Author Organization [facility] Address [address] [facility] [address] [place] [address] Care Team Providers Care Drier And Evaporator Operator Name Role Phone Isidro Zayas Primary Care Provider Tracey Bhatti MD, Burak [facility] [phone] REASON FOR VISIT Consult for Personal history of colonic polyps Social History Sex Assigned At : Social History Observation Description Sex Assigned At Female Encounters Encounter Location Date Provider Diagnosis [facility] [address] [facility] [address] [place] [address] 02/07/2024 Burak Bhatti Plan Of Treatment No Information Progress Notes * NIA PUGA ADOB: (64 yo F)Acc No.[id number]:02/07/2024 Progress Notes Patient:?NIA PUGA Provider:?Burak Bhatti MD :1960???Age:63 Y???Sex:Female D ate:02/07/2024 Address:[address] [place] [phone] Pcp:Isidro Zayas Subjective: * Chief Complaints: * ???1. Consult for Personal h istory of colonic polyps. * Medical History:? Objective: * Vitals:? Assessment: Plan: * Treatment: * Billing Information: * Visit Code:? * Procedure Codes:? * Electronic signature of Burak Bhatti MD, MD on 10/25/2024 at 11:38 AM EDT Sign off status: Pending * Provider:?Burak Bhatti MD Date:?02/07/2024 Generated for Printi ng/Faleong/eTransmitting on:?10/25/2024 11:38 AM EDT
== END 2024-10-25 11:29 | disposition home or self-care (01) ==
LOC: HO.HGI 10:05
PROVIDERS: PCP Internal Medicine; Visit Provider Nurse Practitioner
DX: K21.9 Gastro-esophageal reflux disease without esophagitis (principal); R13.10 Dysphagia, unspecified; Z12.11 Encounter for screening for malignant neoplasm of colon; Z86.0101 Personal history of adenomatous and serrated colon polyps
CPT/HCPCS: 99214

== ENCOUNTER → 2024-10-25 10:04 | Outpatient (BNVA) | payer MEDICARE, SELFPAY | PROVIDERS: PCP Internal Medicine; Visit Provider Nurse Practitioner | DX: Z01.818 Encounter for other preprocedural examination (principal); K21.9 Gastro-esophageal reflux disease without esophagitis; R13.10 Dysphagia, unspecified; D12.6 Benign neoplasm of colon, unspecified; J45.909 Unspecified asthma, uncomplicated; G47.00 Insomnia, unspecified; Z80.0 Family history of malignant neoplasm of digestive organs | CPT/HCPCS: 99212 ==

== ENCOUNTER 2024-10-26 11:09 | Outpatient (REF) | payer MEDICARE, SELFPAY ==
--- OUTSIDE RECORDS SUMMARY | 2024-10-26 13:17 | XMS_ITS | Patient Health Record ---
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 Referred Organization [facility] Referred Provider Burak Bhatti Referred Address [address], [place],[address], Referral Priority Routine Social History Sex Assigned At : Social History Observation Description Sex Assigned At Female Encounters Encounter Location Date Provider Diagnosis [facility] [address] [place] [address] 01/20/2024 Burak Bhatti [facility] [address] [place] [address] 01/21/2024 Burak Bhatti [facility] [address] [place] [address] 01/26/2024 Burak Bhatti Plan Of Treatment No Information Insurance Providers Payer Name Payer Address Payer Phone Subscriber Number Group Number Insured Name Patient Relationship to Insured Coverage Start Date Coverage End Date [facility] D[facility] [address] [address] [place] [phone] [id number] NIA PUGA Self - patient is the insured 4 4
--- OUTSIDE RECORDS SUMMARY | 2024-10-26 13:17 | XMS_ITS | Clinical Summary ---
Author Organization [employer] Address [address] [facility] [place] [address] Care Team Providers Care Director Of Engineering Name Role Phone Arnulfo Maria MD [...] visit on the past year: May on [place] due to flu and asthma exacerbation [...] Plan (06/15/2024 1:32 PM EST): [place] 2023,, will place new order Screening for colon cancer 06/15/2024 Assessment & Plan (06/15/2024 1:32 PM EST): Will refer for screening colon cancer Encounters Date Type Department Care Team Description 10/03/2024 Refill [facility] [address] [place] [address] Arnulfo Maria MD 09/06/2024 Orders Only [facility] [address] [place] [address] Arnulfo Maria MD 09/05/2024 Refill [facility] [address] [place] [address] Arnulfo Maria MD 08/12/2024 Refill [facility] [address] [place] [address] Arnulfo Maria MD 08/07/2024 1:45 PM EST Office Visit [facility] [address] [place] [address] Arnulfo Maria MD Pre-op evaluation (Primary Dx) 08/07/2024 Travel 08/06/2024 Refill [facility] [address] [place] [address] Sandeep Ren MD from Last 3 Months [...] EST Narrative 09/06/2024 11:49 AM EST ? [facility] ? [address] ?[place] [address] ? Ultrasound Report ? Signed ? Patient: Chuck Prakash,Ashley Burroughs ?MR#: MM ?? [id number] ? : 1960 ?Acct:[id number] ? Age/Sex: 64 / F ?ADM Date: 09/06/24 ? Loc: HO.MAMMO ? Attending Dr: Arnulfo Bates MD ? Ordering Physician: Arnulfo Maria MD ?? Date of Service: 09/06/24 ?? Procedure(s): US breast BI limited mamm only ?? Accession Number(s): [id number] ? cc: Arnulfo Maria MD ? EXAMINATION: [...] DD/ 1130 ? TD/TT: 09/06/24 1143 ? Stoneworking Sander: ? Procedure Note Donotsalvatoreinterpreter, Image - 09/06/2024 [facility] [address] [place] [address] Ultrasound Report Signed Patient: Ashley Faulkner AMR#: [id number] : 8Acct:[id number] Age/Sex: 64 / FADM Date: 09/06/24 Loc: HO.MAMMO Attending Dr: Arnulfo Bates MD Ordering Physician: Arnulfo Maria MD Date of Service: 09/06/24 Procedure(s): US breast BI limited mamm only Accession Number(s): [id number] cc: Arnulfo Maria MD EXAMINATION: MM DIAGNOSTIC [...] 09/06/24 1147 DD/ 1130 TD/TT: 09/06/24 1143 Stoneworking Sander: us Arnulfo Bates MD Julia PROCEDURES Edited Result - Final * BI Mammogram Diagnostic Tomosynthesis added bilateral (09/06/2024 11:00 AM EST) Anatomical Region Laterality Modality Breast Left Mammography 09/06/2024 11:0 0 AM EST Narrative 09/06/2024 11:49 AM EST ? [facility] ? [address] ?[place] [address] ? Mammography Report ? Signed ? Patient: Ashley Faulkner A ?MR#: MM ?? [id number] ? : 1960 ?Acct:[id number] ? Age/Sex: 64 / F ?ADM Date: 03/05/25 ? Loc: HO.MAMMO ? Attending Dr: Arnlufo Bates MD ? Ordering Physician: Arnulfo Maria MD ?Res ?? ults: 2Benign Findings ? Date of Service: 09/06/24 ?Follow Up: 1 Year From Orig ?? inal Mammogram ? Procedure(s): MM tomosynthesis added view BI ?? Accession Number(s): [id number] ? cc: Arnulfo Maria MD ? EXAMINATION: [...] DD/ 1100 ? TD/TT: 09/06/24 1115 ? Stoneworking Sander: ? Procedure Note Donotsalvatoreinterpreter, Image - 09/06/2024 [facility] [address] [place] [address] Mammography Report Signed Patient: Ashley Faulkner AMR#: [id number] : 8Acct:[id number] Age/Sex: 64 / FADM Date: 09/06/24 Loc: HO.MAMMO Attending Dr: Arnulfo Bates MD Ordering Physician: Arnulfo Maria ults: 2Benign Findings Date of Service: 09/06/24Follow Up: 1 Year From Orig [facility] Mammogram Procedure(s): MM tomosynthesis added view BI Accession Number(s): [id number] cc: Arnulfo Maria MD EXAMINATION: MM DIAGNOSTIC [...] 09/06/24 1147 DD/ 1100 TD/TT: 09/06/24 1115 Stoneworking Sander: Arnulfo Bates MD IMG BI PROCEDURES Edited Result - Final * BI Mammogram Screening Tomosynthesis Bilateral (07/31/2024 9:45 AM EST) Anatomical Region Laterality Modality Breast Bilateral Mammography 07/31/2024 9:45 AM EST Narrative 08/08/2024 3:42 PM EST ? [facility] [place] ? [address] ?[place] [address] ? Mammography Report ? Signed ? Patient: Ashley Faulkner ?MR#: MM ?? [id number] ? : 1960 ?Acct:[id number] ? Age/Sex: 64 / F ?ADM Date: /27/25 ? Loc: HO.MAMMO ? Attending Dr: Arnulfo Bates MD ? Ordering Physician: Arnulfo Maria MD ? Results: 0Incomplete: Needs Additional Imaging ?? Evaluation ? Date of Service: 07/31/24 ?Follow Up: Additional Imagi ?? ng ? Procedure(s): MM tomosynthesis screening BI ?? Accession Number(s): [id number] ? cc: Arnulfo Maria MD ? EXAMINATION: [...] DD/ 4 ? TD/TT: 07/31/24 1000 ? Stoneworking Sander: ? Procedure Note Dontesfayeter, Image - 08/08/2024 [place] [facility] [address] [place], [place] [address] Mammography Report Signed Patient: Ashley Faulkner AMR#: [id number] : 8Acct:[id number] Age/Sex: 64 / FADM Date: 07/31/24 Loc: HO.MAMMO Attending Dr: Arnulfo Bates MD Ordering Physician: Arnulfo Maria MD Results: 0Incomplete: Needs Additional Imaging Evaluation Date of Service: 07/31/24Follow Up: Additional Imagi ng Procedure(s): MM tomosynthesis screening BI Accession Number(s): [id number] cc: Arnulfo Maria MD EXAMINATION: MM SCREENING [...] 08/08/24 1539 DD/ 0945 TD/TT: 07/31/24 1000 Stoneworking Sander: Arnulfo Bates MD IMG BI PROCEDURES Final Result * Hepatitis C Antibody with Reflex to HCV, RNA, Quantitative, Real-Time PCR (06/16/2024 8:52 AM EST) Hepatitis C Antibody Nonreactive Nonreactive [facility] Comment:Antibodies to HCV no t detected; does not exclude early acuteHCV infection. Blood Venous blood specimen / Unknown 06/16/2024 8:52 AM EST 06/16/2024 2:18 PM EST Arnulfo Bates MD LAB BLOOD ORDERABL ES Final Result [facility] [address] [place] [phone] * Hemoglobin A1c (06/16/2024 8:52 AM EST) Hemoglobin A1c 5.8 <6.0 % [facility] Comment:Hemoglobin A1C Refer ence Range Adults: 4.8 - 6.0 % Non diabetic: < 6.0 % Goal: < 7.0 %Additional Action Suggested: > 8.0 %Note: Hemoglobin A1c results are invalid for patients with abnormal amounts of HbF. Blood transfusions may impact the HbA1c concentration in the patient sample. Estimated Average Glucose 120 mg/dL [facility] Comment:eAG = Estimated ave rage glucose which is %A1C expressed asaverage glucose, using the formula of the W5Y-BjzqjwuYsrrsqk Glucose study (ADAG), Diabetes Care, Vol.31,#8,2007 Blood Venous blood specimen / Unknown 06/16/2024 8:52 AM EST 06/16/2024 2:14 PM EST Arnulfo Bates MD LAB BLOOD ORDERABL ES Final Result Performing Organization Address [facility] Co de Phone Number [facility] [address] [place] [phone] * (ABNORMAL) Lipid Panel, Standard (06/16/2024 8:52 AM EST) Triglycerides 161(H) <150 mg/dL [facility] Comment:Desirable Triglyceri de: less than 150 mg/dLBorderline High Triglyceride 150-199 mg/dLHigh Triglyceride: 200-499 mg/dLVery High Triglyceride: greater than or equal to 5OO mg/dL Cholesterol 158 <200 mg/dL [facility] Comment:Desirable Cholestero l: less than 200 mg/dLBorderline High Cholesterol: 200-239 mg/dLHigh Cholesterol: greater than 239 mg/dL LDL Cholesterol Calculated 84 <100 mg/dL [facility] Comment:Desirable LDL: less than 100 mg/dLNear Optimal/Above Optimal LDL: 110- 129 mg/dLBorderline High LDL: 130-159 mg/dLHigh LDL: 160-189 mg/dLVery High LDL: greater than or equal to 190 mg/dL HDL Cholesterol 42 >40 mg/dL [facility] Comment:Desirable HDL: great er than 40 mg/dL Note: This HDL assay may give artificially low results in patients with liver disease. Blood Venous blood specimen / Unknown 06/16/2024 8:52 AM EST 06/16/2024 2:18 PM EST Arnulfo Bates MD LAB BLOOD ORDERABL ES Final Result Performing Organization Address [facility] Co de Phone Number [facility] [address] [place] [phone] from Last 3 Months or Most Recently Relevant to Health Maintenance Insurance [facility] D[facility] [employer]PLETE Care Teams Director Of Engineering Relationship Specialty Start Date End Date Arnulfo Maria MD [address] [place] [phone] PCP - General Internal Medicine 06/15/24
--- OUTSIDE RECORDS SUMMARY | 2024-10-26 13:17 | XMS_ITS | Encounter Summary ---
Author Organization [employer] Address [address] [facility] 7[address] [place] [address] Care Team Providers Care Cattle Broker Name Role Phone Arnulfo Maria MD Primary Care Prov ider Reason for Visit * Reason Comments Med Refill Encounter Details Date Type Department Care Team ([facility] Contact Info) Description 06/16/2024 Refill [facility]EDS [address] [place] [address] Arnulfo Maria MD [address] [place] [address] Social History Tobacco Use Types Packs/Day Years [...] documented as of this encounter Care Teams Cattle Broker Relationship Specialty Start Date End Date Arnulfo Maria MD [address] [place] [phone] PCP - General Internal Medicine 06/15/24 documented as of this encounter
--- OUTSIDE RECORDS SUMMARY | 2024-10-26 13:17 | XMS_ITS ---
Author Organization [facility] Address [address] [facility] [address] [place] [address] Care Team Providers Care Scale Installer Name Role Phone Isidro Zayas Primary Care Provider Tracey Bhatti MD, Burak [facility] [phone] REASON FOR VISIT Consult for Personal history of colonic polyps Social History Sex Assigned At : Social History Observation Description Sex Assigned At Female Encounters Encounter Location Date Provider Diagnosis [facility] [address] [facility] [address] [place] [address] 02/07/2024 Burak Bhatti Plan Of Treatment No Information Progress Notes * NIA PUGA ADOB: (64 yo F)Acc No.[id number]:02/07/2024 Progress Notes Patient:?NIA PUGA Provider:?Burak Bhatti MD :1960???Age:63 Y???Sex:Female D ate:02/07/2024 Address:[address] [place], [place] [phone] Pcp:Isidro Zayas Subjective: * Chief Complaints: * ???1. Consult for Personal h istory of colonic polyps. * Medical History:? Objective: * Vitals:? Assessment: Plan: * Treatment: * Billing Information: * Visit Code:? * Procedure Codes:? * Electronic signature of Burak Bhatti MD, MD on 10/26/2024 at 01:17 PM EDT Sign off status: Pending * Provider:?Burak Bhatti MD Date:?02/07/2024 Generated for Printi ng/Faleong/eTransmitting on:?10/26/2024 01:17 PM EDT
--- OUTSIDE RECORDS SUMMARY | 2024-10-26 13:17 | XMS_ITS | Encounter Summary ---
Author Organization [employer] Address [address] [facility] [address] [place] [address] Care Team Providers Care Attorney Recruiter Name Role Phone Arnulfo Maria MD Primary Care Prov ider Reason for Visit * Reason Onset Date Comments new patient visit 05/08/2024 Encounter Details Date Type Department Care Team ([facility] st Contact Info) Description 05/08/2024 Telephone [facility] [address] [place] [address] Arnulfo Maria MD [address] [place], [place] [phone] new patient visit Social History Tobacco Use [...] on filedocumented in this encounter Care Teams Attorney Recruiter Relationship Specialty Start Date End Date Arnulfo Maria MD [address] [place] [phone] PCP - General Internal Medicine 06/15/24 documented as of this encounter
--- OUTSIDE RECORDS SUMMARY | 2024-10-26 13:17 | XMS_ITS ---
Author Organization [facility] Address [address] [place] [address] Care Team Providers Care Slitter And Rewinder Name Role Phone Isidro Zayas Primary Care Provider Traecy Bhatti MD, Burak Unavailable [phone] REASON FOR VISIT REFERRAL RECEIVED Social History Sex Assigned At : Social History Observation Description Sex Assigned At Female Encounters Encounter Location Date Provider Diagnosis [facility] [address] [place] [address] 01/21/2024 Burak Bhatti Plan Of Treatment No Information Progress Notes * NIA PUGA ADOB: (63 yo F)Acc No.[id number]:01/21/2024 Patient:?NIA PUGA :1960???Age:63 Y???Sex:Female Address:[address] [place] [address], [phone] * true * Date:? Generated for Rosiei ng/Faleong/eTransmitting on:?10/26/2024 01:17 PM EDT
--- OUTSIDE RECORDS SUMMARY | 2024-10-26 13:17 | XMS_ITS ---
Author Organization [facility] Address [address] [place] [address] Care Team Providers Care House Father Name Role Phone Isidro Zayas Primary Care Provider Tracey Bhatti MD, Burak Unavailable [phone] REASON FOR VISIT INS KEN Social History Sex Assigned At : Social History Observation Description Sex Assigned At Female Encounters Encounter Location Date Provider Diagnosis [facility] [address] [place] [address] 01/26/2024 Burak Bhatti Plan Of Treatment No Information Progress Notes * NIA PUGA ADOB: (63 yo F)Acc No.[id number]:01/26/2024 Patient:?NIA PUGA :1960???Age:63 Y???Sex:Female Address:[address] [place] [address], [phone] * true * Date:? Generated for Printi ng/Faleong/eTransmitting on:?10/26/2024 01:16 PM EDT
== END 2024-10-26 11:10 | disposition home or self-care (01) ==
LOC: HO.LNP 11:09
PROVIDERS: Visit Provider Nurse Practitioner
DX: K21.9 Gastro-esophageal reflux disease without esophagitis (principal); R13.10 Dysphagia, unspecified; Z80.0 Family history of malignant neoplasm of digestive organs
CPT/HCPCS: 87338